=== PATIENT | female | born 1985 | race Caucasian/White ===

== ENCOUNTER → 2016-12-06 | Outpatient (CLI) | payer BC ==
[~2016-12-06] MED LIST: INSPMPHMLG; ONDA4TAB46 PO
--- NOTE | 2016-12-06 16:44 | DIAGNOSTIC IMAGING REPORT ---
THYROID ULTRASOUND CLINICAL HISTORY: Thyroid nodules. COMPARISON STUDY: None. TECHNIQUE: Sonography of the thyroid gland was performed. FINDINGS: Right thyroid lobe measures 5.9 x 2 x 1.8 cm and left lobe measures 5.4 x 1.9 x 2 cm. There are numerous thyroid nodules. The largest within the right lobe is a 2 x 1.3 x 1.3 cm lobulated hypodense midpole lesion which is predominantly solid with small cystic spaces. Note is made of a 1.2 x 1 x 0.8 cm hypoechoic nodule within the lower pole of the right lobe within the deep aspect of the gland. Several left lobe nodules are present. The largest is a solid nodule within the lower pole which measures 2 x 1.2 x 1.3 cm. IMPRESSION: Findings consistent with a multinodular thyroid gland. Ultrasound-guided fine needle aspiration of the 2 cm right mid pole nodule, the 1.2 cm right lower pole nodule and the 2 cm left lower pole nodule is recommended. Please schedule this procedure for Dr. Mensah. Electronically signed by: Alex Mensah M.D. 12/06/2016 4:42 PM Dictated Date/Time: 12/06/2016 3:36 PM
== END | disposition home or self-care (01) ==
LOC: C.ULTR 13:53
PROVIDERS: ATTEND Internal Medicine Endocrinology, Diabetes & Metabolism
DX: E04.2 Nontoxic multinodular goiter (principal)

== ENCOUNTER → 2016-12-27 | Outpatient (CLI) | payer BC ==
[~2016-12-27] MED LIST changes: -ONDA4TAB46 PO
--- NOTE | 2016-12-27 10:23 | Discharge Instructions ---
Discharge Instructions Procedure Procedure Date: December 27, 2016. Reason for visit: *Dr. Mensah Must Do*,Thyroid Nodules. Discharge Discharge Date: December 27, 2016. Discharge Diagnosis: s/p thyroid nodule FNA Instructions Activity Recommendations: No limitations Return to School/Work: no limitations Recommended Home Diet: No Limitations Provider Instructions: ACTIVITY RECOMMENDATIONS: * Rest today. * Resume regular activity in one day. MEDICATIONS: * May take Tylenol or Ibuprofen as needed for pain. DIET: * Resume previous diet. SPECIAL CARE INSTRUCTIONS: Call your doctor if: * Temperature above 101 degrees F. * Pain not relieved by pain medicine ordered. * Increased drainage or redness from incision. * Notify your doctor with any questions or concerns. Call your doctor or go to the nearest Emergency Department if you experience: * Increased chest pain or shortness of breath. FOLLOW UP VISIT: Follow-up with Referring Physician as scheduled. Allergies Coded Allergies: Latex1 -Allergic Contact Dermititis (Verified Allergy, Unknown, RASH, 10/08) Gera Foreman Recommendations: Call your doctor if: * Temperature above 101 degrees * Pain not relieved by pain medicine ordered * There is increased drainage or redness from any incision * You have any unanswered questions or concerns. Your Doctors Instructions noted above were prepared by provider Alex Mensah. Patient Signature Section: Patient Instructions Signature Page Halima Angeles Patient (or Guardian) Signature/Date: I have read and understand the instructions given to me by my caregivers. Caregiver/RN/Doctor Signature/Date: The above-named patient and/or guardian has received patient instructions on this date. + Original Patient Signature Page (only) stays with chart. Please make copy for patient.
--- NOTE | 2016-12-27 11:05 | DIAGNOSTIC IMAGING REPORT ---
ULTRASOUND GUIDED FINE NEEDLE ASPIRATION OF RIGHT AND LEFT LOBE THYROID NODULES CLINICAL HISTORY: Thyroid nodules. COMPARISON STUDY: Thyroid ultrasound December 06, 2016. PROCEDURE: Sonography of the thyroid gland again demonstrated the 2 cm right mid pole nodule and the 2 cm left lower pole nodule. The third nodule mentioned on prior ultrasound of December 06, 2016 was shown to be nearly entirely cystic on real-time imaging and therefore this nodule was not biopsied. The largest nodule within each lobe were targeted for biopsy. The procedure, risks and benefits were discussed with the patient. The patient agreed to the procedure and informed written consent was obtained. The procedure was performed by Dr. Mensah following a timeout. Skin of the neck was prepped and sterile fashion and local anesthesia was achieved with 1% lidocaine. Under direct ultrasound guidance, 2 25-gauge fine needle aspirations of the 2 cm right mid pole nodule and the 2 cm left lower pole nodule were performed. The samples were deemed preliminarily adequate by pathology. The patient tolerated the procedure well and no immediate complications were evident. IMPRESSION: 1. Ultrasound guided fine needle aspiration of the 2 cm right mid pole nodule and the 2 cm left lower pole nodule. 2. The third nodule mentioned on previous ultrasound of December 06, 2016 was not biopsied as it was nearly entirely cystic on real-time imaging. Electronically signed by: Alex Mensah M.D. 12/27/2016 11:03 AM Dictated Date/Time: 12/27/2016 11:01 AM
== END | disposition home or self-care (01) ==
LOC: C.ULTR 09:21
PROVIDERS: ATTEND Internal Medicine Endocrinology, Diabetes & Metabolism
DX: E04.1 Nontoxic single thyroid nodule (principal)

== ENCOUNTER → 2017-01-10 | Outpatient (CLI) | payer BC ==
[2017-01-10 17:18] LABS: HEMATOCRIT 46.2 % (37-47)
[2017-01-10 17:43] LABS: ALT/SGPT 21 U/L (12-78); AST/SGOT 14 U/L (15-37); BLOOD UREA NITROGEN 17 mg/dl (7-18); CALCIUM 8.9 mg/dl (8.5-10.1); CARBON DIOXIDE 29 mmol/L (21-32); CHLORIDE 105 mmol/L (98-107); CREATININE 0.81 mg/dl (0.60-1.20); GLUCOSE 177 mg/dl (70-99); POTASSIUM 4.1 mmol/L (3.5-5.1); SODIUM 140 mmol/L (136-145)
[2017-01-10 17:53] LABS: ALKALINE PHOSPHATASE 91 U/L (45-117); THYROID STIMULATING HORMONE 0.378 uIu/ml (0.300-4.500)
[2017-01-10 17:55] LABS: RATIO 6.4 mcg/mg (0-30.0)
[2017-01-11 07:24] LABS: ESTIMATED AVERAGE GLUCOSE 163 mg/dl; HA1C FLAG Normal (Normal)
== END | disposition home or self-care (01) ==
LOC: C.LAB1850 15:15
PROVIDERS: ATTEND Internal Medicine Endocrinology, Diabetes & Metabolism
DX: E10.9 Type 1 diabetes mellitus without complications (principal)

== ENCOUNTER → 2017-07-06 | Outpatient (CLI) | payer BC ==
[2017-07-06 12:53] LABS: ESTIMATED AVERAGE GLUCOSE 169 mg/dl; HA1C FLAG Normal (Normal)
[2017-07-06 13:09] LABS: CHOLESTEROL/HDL RATIO 2.5; THYROID STIMULATING HORMONE 0.285 uIu/ml (0.300-4.500)
[2017-07-10 15:28] LABS: MICROSOMAL AB <1 IU/ML (<9); TSI <89 % baseline (<140)
== END | disposition home or self-care (01) ==
LOC: C.LAB 09:53
PROVIDERS: ATTEND Internal Medicine Endocrinology, Diabetes & Metabolism
DX: E10.9 Type 1 diabetes mellitus without complications (principal); E27.0 Other adrenocortical overactivity; E04.1 Nontoxic single thyroid nodule

== ENCOUNTER 2017-09-18 07:39 | Emergency (ER) | payer BC, OTHER ==
[~2017-09-18] VITALS: Ht 160 cm; Wt 81.7 kg
[2017-09-18 07:50] VITALS: TEMP 36.9; Ht 160 cm; Wt 81.7 kg
[2017-09-18] MEDS ORDERED: ONDANSETRON INJ 2 MG/ML 2 ML VIAL IV STA (08:11)
[2017-09-18] MEDS ORDERED: SODIUM CHLORIDE 0.9% 1000ML 1,000 ML IV STA ×2 (08:11→10:29)
[2017-09-18] MEDS ORDERED: METF750T PO (08:19)
[2017-09-18 08:58] LABS: BASO % 0.1 %; BASO ABS # 0.01 K/uL (0-0.2); HEMOGLOBIN 15.7 g/dL (12.0-16.0); IG# 0.04 K/uL (0.00-0.02); LYMPH ABS # 0.44 K/uL (1.2-3.4); MEAN CELL VOLUME 90.2 fL (80-100); MEAN CORPUSCULAR HEMOGLOBIN 31.5 pg (25-34); MEAN CORPUSCULAR HGB CONC 34.9 g/dl (32-36); MEAN PLATELET VOLUME 10.1 fL (7.4-10.4); MONO % 1.2 %; MONO ABS # 0.18 K/uL (0.11-0.59); NEUT % 95.4 %; NEUT ABS # 13.84 K/uL (1.4-6.5); PLATELET COUNT 182 K/uL (130-400); RED CELL DISTRIBUTION WIDTH CV 12.5 % (11.5-14.5); RED CELL DISTRIBUTION WIDTH SD 40.9 fL (36.4-46.3); WHITE BLOOD COUNT 14.51 K/uL (4.8-10.8)
[2017-09-18 09:15] LABS: ALBUMIN 4.2 gm/dl (3.4-5.0); CALCIUM 9.6 mg/dl (8.5-10.1); CREATININE 0.93 mg/dl (0.60-1.20)
[2017-09-18 09:18] LABS: TOTAL PROTEIN 8.3 gm/dl (6.4-8.2)
[2017-09-18 11:02] LABS: INFLUENZA B ANTIGEN Neg for Influ B (NEG)
[2017-09-18] MEDS ORDERED: PROM25TA9 PO (11:21)
[2017-09-18 11:58] VITALS: BP 103/63; PULSE 110; O2SAT 99
--- NOTE | 2017-09-23 14:27 | EMERGENCY ROOM VISIT NOTE ---
History First contact with patient: 08:03 Chief Complaint: VOMITING Stated Complaint: THROWING UP, BLOOD SUGAR UP, FEVER Nursing Triage Summary: vomiting since last evening. History of Present Illness The patient is a 32 year old white female who presents to the Emergency Room with complaints of nausea and vomiting that developed around 9 PM last evening. She states she has thrown up numerous times, almost every hour. No diarrhea. She is a diabetic and is concerned that her sugars may climb. She is worried about DKA. No known ill contacts. She denies eating anything unusual or undercooked. No fevers, chills, chest pain, cough, shortness of breath, or severe abdominal pain. She has had some sweats. No treatment yet. She was not able to retain any fluids this morning. A female friend accompanies her today. Review of Systems REVIEW OF SYSTEM: HEENT: No dizziness, visual problems, hearing loss, or tinnitus. There is no difficulty swallowing and no oral lesions are present. PULMONARY: No cough, shortness of breath, sputum production or hemoptysis. CARDIOVASCULAR: No chest pain, palpitations, shortness of breath or peripheral edema. GASTROINTESTINAL: No diarrhea, constipation, or abdominal pain. GENITOURINARY: No dysuria, frequency, urgency or nocturia. NEUROLOGIC: No weakness, muscle tenderness, epilepsy or history of neurological problems. MUSCULOSKELETAL: No history of joint tenderness/swelling. No history of arthritis or arthralgias. SKIN: No rashes or lesions. PSYCHIATRIC: No history of depression or mental illness. ENDOCRINE: No history of thyroid disorders, or abnormal hair growth. Past Medical/Surgical History Medical Problems: (1) Diab Aleksandra Wo Comp Type Ii Or Nos/Not Uncontrolled (2) Diab Aleksandra Wo Comp Type Ii Or Nos/Not Uncontrolled Family History Diabetes mellitus Hypertension Social History Smoking Status: Never Smoker Smokeless Tobacco Use: No Alcohol Use: none Drug Use: none Marital Status: Housing Status: lives with significant other Occupation Status: employed Current/Historical Medications Scheduled Insulin Human Lispro (Insulin Humalog Pump ), 1 EA N/A UD Metformin Hcl (Glucophage Er), 750 MG PO DAILY Scheduled PRN Promethazine Hcl (Phenergan), 25 MG PO Q6H PRN for Nausea Physical Exam Vital Signs Date Time Temp Pulse Resp B/P (MAP) Pulse Ox O2 Delivery O2 Flow Rate FiO2 09/18/17 11:58 110 18 103/63 99 1/21/18 09:32 88 18 113/63 99 Room Air 09/18/17 07:50 36.9 104 20 105/70 98 Room Air Physical Exam Gen.: Well-developed, well-nourished, young white female, in no acute distress. Laying on a bed. Alert and oriented. Skin:Warm and dry with good turgor. No rashes or lesions. No ecchymosis or erythema. The patient is not diaphoretic. No abrasions. HEENT: Normocephalic atraumatic. Eyes PERRLA, EOMI. No conjunctiva or scleral injection. Ears TMs intact bilaterally with good light reflexes. No erythema or bulging. No hemotympanum. Canals are patent. Nares patent bilaterally without turbinate enlargement. No significant drainage. No epistaxis. Oropharynx without erythema or exudate. Uvula midline, oral mucosa moist. No lesions present. Heart: Heart RRR. No MGR. Peripheral pulses are 2+. Lungs: Lungs are clear to auscultation. No crackles rhonchi or wheezing. Good air movement. The patient is able to take a deep breath. Abdomen: Abdomen was inspected, auscultated, and palpated. Mildly obese. Bowel sounds present x 4. Soft, nontender to palpation. No hepato- splenomegaly. No masses noted. No rebound. No pain over McBurney's point. No CVA tenderness. Musculoskeletal: Gross motor function of the upper and lower extremities is intact and unremarkable. Neurologic: Gross sensation is intact across the upper and lower extremities by soft touch. Medical Decision & Procedures Laboratory Results 09/18/17 08:48 Red Blood Count 4.99, Mean Corpuscular Volume 90.2, Mean Corpuscular Hemoglobin 31.5, Mean Corpuscular Hemoglobin Concent 34.9, Mean Platelet Volume 10.1, Neutrophils (%) (Auto) 95.4, Lymphocytes (%) (Auto) 3.0, Monocytes (%) (Auto) 1.2, Eosinophils (%) (Auto) 0.0, Basophils (%) (Auto) 0.1, Neutrophils # (Auto) 13.84, Lymphocytes # (Auto) 0.44, Monocytes # (Auto) 0.18, Eosinophils # (Auto) 0.00, Basophils # (Auto) 0.01 09/18/17 08:48 Test 09/18/17 08:45 09/18/17 08:48 09/18/17 10:31 Urine Color DK YELLOW Urine Appearance CLEAR (CLEAR) Urine pH >= 9.0 (4.5-7.5) Urine Specific [place] 1.028 (1.000-1.030) Urine Protein NEG (NEG) Urine Glucose (UA) TRACE (NEG) Urine Ketones 1+ (NEG) Urine Occult Blood NEG (NEG) Urine Nitrite NEG (NEG) Urine Bilirubin NEG (NEG) Urine Urobilinogen NEG (NEG) Urine Leukocyte Esterase TRACE (NEG) Urine WBC (Auto) 1-5 /hpf (0-5) Urine RBC (Auto) 0-4 /hpf (0-4) Urine Hyaline Casts (Auto) 1-5 /lpf (0-5) Urine Epithelial Cells (Auto) >30 /lpf (0-5) Urine Bacteria (Auto) 1+ (NEG) Urine Mucus PRESENT (NONE PRSENT) White Blood Count 14.51 K/uL (4.8-10.8) Red Blood Count 4.99 M/uL (4.2-5.4) Hemoglobin 15.7 g/dL (12.0-16.0) Hematocrit 45.0 % (37-47) Mean Corpuscular Volume 90.2 fL (80-100) Mean Corpuscular Hemoglobin 31.5 pg (25-34) Mean Corpuscular Hemoglobin Concent 34.9 g/dl (32-36) Platelet Count 182 K/uL (130-400) Mean Platelet Volume 10.1 fL (7.4-10.4) Neutrophils (%) (Auto) 95.4 % Lymphocytes (%) (Auto) 3.0 % Monocytes (%) (Auto) 1.2 % Eosinophils (%) (Auto) 0.0 % Basophils (%) (Auto) 0.1 % Neutrophils # (Auto) 13.84 K/uL (1.4-6.5) Lymphocytes # (Auto) 0.44 K/uL (1.2-3.4) Monocytes # (Auto) 0.18 K/uL (0.11-0.59) Eosinophils # (Auto) 0.00 K/uL (0-0.5) Basophils # (Auto) 0.01 K/uL (0-0.2) RDW Standard Deviation 40.9 fL (36.4-46.3) RDW Coefficient of Variation 12.5 % (11.5-14.5) Immature Granulocyte % (Auto) 0.3 % Immature Granulocyte # (Auto) 0.04 K/uL (0.00-0.02) Anion Gap 8.0 mmol/L (3-11) Est Creatinine Clear Calc Drug Dose 86.3 ml/min Estimated GFR () 92.9 Estimated GFR (Non- 80.2 BUN/Creatinine Ratio 27.1 (10-20) Calcium Level 9.6 mg/dl (8.5-10.1) Total Bilirubin 0.6 mg/dl (0.2-1) Aspartate Amino Transf (AST/SGOT) 17 U/L (15-37) Alanine Aminotransferase (ALT/SGPT) 21 U/L (12-78) Alkaline Phosphatase 86 U/L (45-117) Total Protein 8.3 gm/dl (6.4-8.2) Albumin 4.2 gm/dl (3.4-5.0) Globulin 4.1 gm/dl (2.5-4.0) Albumin/Globulin Ratio 1.0 (0.9-2) Influenza Type A Antigen Neg for Influ A (NEG) Influenza Type B Antigen Neg for Influ B (NEG) CBC, chem panel, and influenza swabs were obtained. Sugar elevated at 204. White count mildly elevated at 14.5. UA obtained today shows 1+ ketones. Otherwise unremarkable. Medications Administered Medications (Trade) Dose Ordered Sig/Liang Route Start Time Stop Time Status Last Admin Dose Admin Sodium Chloride 1,000 ml @ 999 mls/hr Q1H1M STAT IV 09/18/17 08:11 09/18/17 09:11 DC 09/18/17 08:11 999 MLS/HR Ondansetron HCl (Zofran Inj) 4 mg NOW STAT IV 09/18/17 08:11 09/18/17 08:14 DC 09/18/17 09:02 4 MG Sodium Chloride 1,000 ml @ 999 mls/hr Q1H1M STAT IV 09/18/17 10:29 09/18/17 11:29 DC 09/18/17 10:29 999 MLS/HR Zofran 4 mg IV, 1 L normal sterile saline IV bolus 2 ED Course Patient was evaluated in B5. She was educated regarding today's findings. Conservative care measures were discussed. IV was established. Labs were obtained. She was given Zofran 4 mg IV with resolution of her nausea and vomiting. She was given 2 L normal sterile saline IV bolus. She remained stable. She had no further episodes of vomiting. Influenza swab was negative. Likelihood of GI virus was discussed. Follow-up with her PCP as needed. Maintain hydration. She may use Imodium if diarrhea develops. Prescription was given for Phenergan 25 mg to be used one tablet every 6 hours as needed for nausea and vomiting. Return to the ED if she should develop an uncontrollable fever or is unable to retain any food or fluids. She should check her blood sugar frequently. Nausea and vomiting instruction handout was provided. Medical Decision Possibility of gastroenteritis, gastritis, bacterial infection, diabetic ketoacidosis, bowel obstruction, UTI, sepsis, food poisoning, and influenza were considered, among others Medication Reconcilliation Current Medication List: was personally reviewed by me Blood Pressure Screening Patient's blood pressure: Normal blood pressure Impression Primary Impression: Nausea, vomiting, and diarrhea Departure Information Dispostion Home / Self-Care Condition FAIR Prescriptions Promethazine Hcl (Phenergan) 25 Mg Tab 25 MG PO Q6H Y for Nausea, #12 TAB Prov: Claude Wagner,P.A. 09/18/17 Forms INCREASE FLUID INTAKE, HOME CARE DOCUMENTATION FORM, MOTRIN USE, TYLENOL USE, IMPORTANT VISIT INFORMATION Patient Instructions Nausea Vomit Control, [employer] Additional Instructions Maintain hydration. Imodium can be used to reduce loose stools Phenergan 1 tablet every 6 hours as needed for nausea Monitoring your sugars frequently Follow-up with your PCP or return to the ED for any acute worsening of symptoms Rest as needed
== END 2017-09-18 12:00 | disposition home or self-care (01) ==
LOC: C.EDB 07:40
DX: R11.2 Nausea with vomiting, unspecified (principal); R19.7 Diarrhea, unspecified; E11.9 Type 2 diabetes mellitus without complications; Z79.4 Long term (current) use of insulin; Z83.3 Family history of diabetes mellitus; Z82.49 Family history of ischemic heart disease and other diseases of the circulatory system

== ENCOUNTER → 2017-10-20 | Outpatient (CLI) | payer OTHER ==
[~2017-10-20] MED LIST changes: +METF750T PO; +PROM25TA9 PO
[2017-10-20 16:35] LABS: BLOOD UREA NITROGEN 25 mg/dl (7-18); CALCIUM 9.5 mg/dl (8.5-10.1); CARBON DIOXIDE 26 mmol/L (21-32); CREATININE 0.91 mg/dl (0.60-1.20); GLUCOSE 131 mg/dl (70-99); POTASSIUM 3.9 mmol/L (3.5-5.1); SODIUM 137 mmol/L (136-145)
== END | disposition home or self-care (01) ==
LOC: C.LAB1850 15:10
PROVIDERS: ATTEND Family Medicine
DX: R06.02 Shortness of breath (principal)

== ENCOUNTER → 2017-10-21 | Outpatient (CLI) | payer OTHER ==
[~2017-10-21] MED LIST changes: +OPTIRAY 320 IV PRN
--- NOTE | 2017-10-21 09:54 | DIAGNOSTIC IMAGING REPORT ---
CT ANGIOGRAM OF THE CHEST CLINICAL HISTORY: Cough and dyspnea. COMPARISON STUDY: Chest x-ray dated 06/23/2016. TECHNIQUE: Following the IV administration of 91 cc of Optiray 320, CT angiogram of the chest was performed from the upper abdomen to the thoracic inlet utilizing the pulmonary embolus protocol. Images are reviewed in the axial, sagittal, and coronal planes. 3-D MIPS images are created and assessed. IV contrast was administered without complication. A dose lowering technique was utilized adhering to the principles of ALARA. CT DOSE: 260.61 mGy.cm FINDINGS: Thyroid: Imaged portions of the thyroid gland are normal in size and heterogeneous in attenuation. Low-attenuation nodules are suggested measure up to 1.4 cm. Thoracic aorta: The thoracic aorta is normal in caliber and demonstrates standard 3-vessel arch anatomy. No dissection is seen. Pulmonary vasculature: The pulmonary trunk is normal in caliber. There are no filling defects identified in main, lobar, or segmental pulmonary branches to suggest pulmonary embolus. Heart: The heart is normal in size and configuration, and without pericardial effusion. Lungs and pleural spaces: A small calcified granuloma is seen in the left lower lobe. Small patchy foci of tree-in-bud nodularity are present in the lower lobes and in the right middle lobe. There is no lobar consolidation or pleural effusion. The trachea and central airways are clear. Mediastinum: There is no mediastinal lymphadenopathy. Scarlett: Clear. Axillae: There is no axillary lymphadenopathy. Upper abdomen: Partially visualized upper abdominal viscera is within normal limits. Skeletal structures: No lytic or blastic bony lesions are seen. IMPRESSION: 1. There is no evidence of pulmonary embolus in the main, lobar, or segmental pulmonary arteries. 2. There are small patchy foci of tree-in-bud nodularity seen in the lower lobes and the right middle lobe. This suggests an infectious/inflammatory pneumonitis. 3. The thyroid gland is heterogeneous. Low-attenuation nodules are suspected measuring up to 1.4 cm. Follow-up with a nonemergent thyroid ultrasound is recommended for further assessment. Electronically signed by: Nolberto Berry M.D. 10/21/2017 9:52 AM Dictated Date/Time: 10/21/2017 9:47 AM
== END | disposition home or self-care (01) ==
LOC: C.CTS 09:16
PROVIDERS: ATTEND Family Medicine
DX: R06.02 Shortness of breath (principal)

== ENCOUNTER → 2018-01-16 | Outpatient (CLI) | payer OTHER ==
[~2018-01-16] MED LIST changes: -OPTIRAY 320 IV PRN
== END | disposition home or self-care (01) ==
LOC: C.PATHSPEC 17:29
PROVIDERS: ATTEND Plastic Surgery
DX: D22.5 Melanocytic nevi of trunk (principal)

== ENCOUNTER 2024-10-15 00:59 | Inpatient (IN) ==
--- OUTSIDE RECORDS SUMMARY | 2024-10-15 01:04 | External Medical Summary | Summary of Care ---
Author Name Unknown Organization [facility] Address [address] [place] [address] Phone [phone] Care Team Providers Care Applications Programmer Name Role Phone Angeline Bueno DO Primary Care Provider [phone] Reason for Visit * Reason Onset Date Comments Medication Administration 06/19/2024 Flu an d/or Pneumo Inj Encounter Details Date Type Department Care Team (Late st Contact Info) Description 06/19/2024 3:30 PM EDT Immunization Ancillary Department, [address] [address] [facility] [address] [place] [address] Need for prophylactic vaccination and inoculation against influenza* Allergies Active Allergy Reactions Criticality Noted Date Comments Latex Hives 04/18/2014 Valacyclovir 10/10/2014 Rash - questionable documented as of this encounter (statuses as of 06/19/2024) Medications Medication Sig Dispensed Refills Start Date End Date Status ONETOUCH LANCETS MISC check Finger stick 8 times daily 10 Box 1 08/12/2014 Active GLUCAGON EMERGENCY 1 MG IJ KIT As directed 2 Kit 5 09/14/2014 Active insulin aspart (INSULIN ASPART) 100 UNIT/ML injection 150 units every 3 days in Medtronic insulin pump as directed 6 Vial 3 12/25/2015 Active OZEMPIC, 0.25 OR 0.5 MG/DOSE, 2 MG/1.5ML SOPN Inject 0.25 mg under the skin once a week. 08/15/2019 Active levothyroxine (LEVOXYL) 150 MCG Tablet Take 1 Tablet by mouth in the morning. 7 08/15/2019 Active Dexcom G6 Bi Application Developer Device Start: 01/26/22 12:44:00 EDT, See Instructions, Disp# 1 kit, to monitor glucose, Pharmacy: [facility]/pharmacy #[id number] 01/26/2022 Active Dexcom G6 Sensor Start: 01/26/22 12:44:00 EDT, See Instructions, Disp# 3 each, Refills: 7, to monitor glucose, Pharmacy: [facility]/pharmacy #[id number] 01/26/2022 Active Dexcom G6 Transmitter Start: 01/26/22 12:44:00 EDT, See Instructions, Disp# 1 kit, to monitor glucose, Pharmacy: [facility]/pharmacy #[id number] 01/26/2022 Active OneTouch Ultra In Vitro Strip 09/14/2022 Active OneTouch Ultra 2 w/Device Kit 09/14/2022 Active AutoSoft XC Infusion Set 08/09/2022 Active T:slim X2 3mL Cartridge 08/09/2022 Active Precision Xtra Ketone In Vitro Strip (Ketone Blood Test)Indications:Ty pe 1 diabetes mellitus with hemoglobin A1c goal of less than 7.0% ([facility]) Use as needed to test for ketones. 50 Strip 05/03/2023 Active Triamcinolone Acetonide 0.1 % External Cream (Aristocort)Indicat ions:Allergic contact dermatitis, unspecified trigger Apply topically to affected area 2 times a day. To affected area. 60 g 1 01/02/2024 Active Additional Information Patient not taking.Reported on 05/15/2024 Ondansetron HCl 4 MG Oral Tablet (Zofran)Indications :Nausea Take 1 Tablet by mouth every 8 hours as needed for Nausea. 18 Tablet 1 05/15/2024 Active busPIRone HCl 5 MG Oral Tablet (Buspar)Indications :BARB (generalized anxiety disorder) Take 1 Tablet by mouth 3 times a day as needed for Anxiety. 90 Tablet 3 06/12/2024 Active documented as of this encounter (statuses as of 06/19/2024) Active Problems Problem Noted Date Diagnosed Date BARB (generalized anxiety disorder) 09/02/2020 Acquired hypothyroidism 09/02/2020 Type 1 diabetes mellitus wit h hemoglobin A1c goal of less than 7.0% 06/04/2016 Overview: Sees Dr Becky Mullen @[facility] PCOS (polycystic ovarian syndrome) 04/18/2014 documented as of this encounter (statuses as of 06/19/2024) Resolved Problems Problem Noted Date Diagnosed Date Resolved Date Recurrent major depressive d isorder, in full remission 09/02/2020 05/03/2023 Diabetes type 1, uncontrolled 12/25/2015 10/11/2017 Liver mass 11/25/2015 09/02/2020 Chronic diarrhea 11/25/2015 09/02/2020 Abdominal bloating 11/25/2015 Neoplasm of uncertain behavior of skin 11/11/2014 09/02/2020 Skin tag 11/11/2014 09/02/2020 Acne 11/11/2014 09/02/2020 History of basal cell cancer 11/11/2014 09/02/2020 Multiple pigmented nevi 11/11/201412/2020 Bronchitis, complicated 09/18/201412/2020 Type 1 diabetes mellitus wit h hemoglobin A1c goal of less than 8.5% 08/12/2014 12/25/2015 Overview: ICD-10 update of inactive term No diabetic retinopathy in both eyes 08/12/2014 09/02/2020 Type 1 diabetes mellitus wit h hemoglobin A1c goal of less than 7.0% 04/18/2014 09/14/2014 Overview: ICD-10 update of inactive term documented as of this encounter (statuses as of 06/19/2024) Immunizations Name Administration Dates Next Due COVID-19 mRNA, LNP-s, No Pre serve, 2-Dose Series (Pfizer) 11/22/2020,10/27/2020 Pneumococcal Polysaccharide PPV23 (Pneumovax) 02/13/2014 Seasonal Influenza, PF, 6 M & above, IM , (FluLaval or Fluzone) 05/20/2023,07/20/2022,09/02/2021,06/05 Seasonal Influenza, Trivalen t, (IIV3), PF, (Fluzone) 06/19/2024 TDAP (age 10 and older)(Boostrix) 02/13/2014 documented as of this encounter Social History Tobacco Use Types Packs/Day Years Used Date Smoking Tobacco: Never Smokeless Tobacco: Never Alcohol Use Standard Drinks/Week Comments Yes 0 (1 standard drink = 0.6 oz pur e alcohol) wine 2x/week PHQ-2 Answer Date Recorded PHQ Adult Total Score 0 05/15/2024 Hunger Vital Sign Answer Date Recorded Worried About Running Out of Food in the Last Ye ar Never true 09/12/2019 Ran Out of Food in the Last Year Never true 09/12/2019 Utilities Answer Date Recorded Do you have trouble paying y our heating, water, or electric bill? (Adult - for ages 18 years and over) Not on file 02/14/2024 Is your family able to pay t he heat, water, or electric bill? (Household - for ages 0-17 years) Not on file 02/14/2024 Does your family have access to good internet? (Household - for ages 0-17 years) Not on file 02/14/2024 Social Connections Answer Date Recorded How often do you feel lonely or isolated from those around you? (Adult - for ages 18 years and over) Not on file 02/14/2024 Sex and Gender Information Value Date Recorded Sex Assigned at Not on file Gender Identity Not on file Sexual Orientation Not on file Job Start Date Occupation Industry Not on file Not on file Not on file documented as of this encounter Progress Notes * Mary Grace Mireles LPN - 06/19/2024 3:34 PM EDT Immunization Administration Documentation Time Out Procedure Performed: Yes Patient Identified (Ask Name/Date of ): Yes Does the patient have a fever greater than 101 degrees today? No Patient allergic to latex? No VFC Stock: No Immunization(s) verified: Yes, Immunization Name: Flu, VIS Sheet(s) given: Yes Verified Side and Site: Yes Verified Shot(s) with Parent(s)/Patient: Yes PRE - ADMINISTRATION DOCUMENTATION Are you experiencing any cold symptoms or fever? No Have you had Guillain-Orlando Syndrome (an illness that causes paralysis) within the last 6 weeks? No Have you had the flu shot in the past? YES Have you ever had a reaction to the flu shot? Princess Mireles LPN, 06/19/2024 3:34 PM documented in this encounter Plan of Treatment Upcoming Encounters Date Type Department Care Team (Late st Contact Info) Description 09/21/2024 9:45 AM EST Imaging Radiology [address], [address] [place] [address] Scheduled Procedures Name Priority Associated Diagnoses Date/Ti me COLONOSCOPY FLEXIBLE PROXIMAL DIAGNOSTIC Chronic diarrhea ESOPHAGOGASTRODUODENOSCOPY ( EGD), FLEXIBLE, TRANSORAL, DIAGNOSTIC Chronic diarrhea Health Maintenance Due Date Last Done Comments Hepatitis B Vaccine (1 of 3 - 19+ 3-dose series) 2002 Pneumococcal Vaccine: Pediatrics (0 to 5 Years) and At-Risk Patients (6 to 64 Years) (2 of 2 - PCV) 02/13/2015 02/13/2014 Albumin/Creatinine Ratio 06/24/2016 06/24/2015, 11/28 Lipid Panel 04/30/2021 04/30/2016, 11/25/2014 GFR 08/25/2021 08/25/2020, 07/30, 10/20/2017, Additional history exists Diabetic Eye Exam 08/04/2022 08/04/2021, , 11/04/2018, Additional history exists DTap/Tdap Vaccines (2 - Td or Tdap) 02/14/2024 02/13/2014 COVID-19 Vaccine ( season) 2024 06/29/2021, 11/22/2020, 10/27/2020 Mammogram 09/08/2024 09/08/2023 HbA1c 10/03/2024 04/02/2024, 09/09/2015, 11/04/2015, Additional history exists Diabetic Foot Exam 12/20/2024 12/21/2023, 1 , 07/30/2015, Additional history exists TSH 04/02/2025 04/02/2024, 05/30, 11/25/2014 Depression Screening 05/15/2025 05/15/2024 Hepatitis C Screening 05/15/2025 Postpo precious from 2001 (Patient Declined After Education) HIV Screening 05/22/2025 Postponed from 1998 (Patient Declined After Education) Pap Smear 10/12/2026 10/12/2023, 01/2018, 04/26/2014, Additional history exists Cervical Cancer Screening 10/12/2028 HPV/Co-Test 10/12/2028 10/12/2023 Influenza Vaccine (FLU shot) Completed 06/19/2024, 05/20/2023, 07/20/2022, Additional history exists HPV (Gardasil) Vaccine Aged Out No lo nger eligible based on patient's age to complete this topic MENINGOCOCCAL (MENACTRA/MENVEO) Aged Out No longer eligible based on patient's age to complete this topic documented as of this encounter Medical Devices Not on filedocumented as of this encounter Visit Diagnoses Diagnosis Need for prophylactic vaccination and inoculation against influenza- Primary documented in this encounter Care Teams Applications Programmer Relationship Specialty Start Date End Date Angeline Bueno DO [address] [place] [address] PCP - General Family Medicine 08/12/14 documented as of this encounter
--- OUTSIDE RECORDS SUMMARY | 2024-10-15 01:04 | External Medical Summary | Summary of Care ---
Author Name Unknown Organization [facility] Address [address] [place] [address] Phone [phone] Care Team Providers Care Pneumatic Tester Mechanic Name Role Phone DecemberGordo MD Primary Care Provider [phone] Encounter Details Date Type Department Care Team (Late st Contact Info) Description 08/28/2024 Orders Only [facility] [address] [place] [address] DecemberGordo MD [address] [facility] [address] [place], [place] [id number] Allergies Active Allergy Reactions Criticality Noted Date Comments Latex Hives 04/18/2014 Valacyclovir 10/10/2014 Rash - questionable documented as of this encounter (statuses as of 08/28/2024) Medications ONETOUCH LANCETS MISC check Finger stick 8 times daily 10 Box 1 4 Active GLUCAGON EMERGENCY 1 MG IJ KIT As directed 2 Kit 5 5 Active insulin aspart (INSULIN ASPART) 100 UNIT/ML injection 150 units every 3 days in Medtronic insulin pump as directed 6 Vial 3 6 Active OZEMPIC, 0.25 OR 0.5 MG/DOSE, 2 MG/1.5ML SOPN Inject 0.25 mg under the skin once a week. 9 Active levothyroxine (LEVOXYL) 150 MCG Tablet Take 1 Tablet by mouth in the morning. 7 9 Active Dexcom G6 Digital Publishing Specialist Device Start: 01/26/22 12:44:00 EDT, See Instructions, Disp# 1 kit, to monitor glucose, Pharmacy: [facility]/pharmacy #[id number] 2 Active Dexcom G6 Sensor Start: 01/26/22 12:44:00 EDT, See Instructions, Disp# 3 each, Refills: 7, to monitor glucose, Pharmacy: [facility]/pharmacy #[id number] 2 Active Dexcom G6 Transmitter Start: 01/26/22 12:44:00 EDT, See Instructions, Disp# 1 kit, to monitor glucose, Pharmacy: [facility]/pharmacy #[id number] 2 Active OneTouch Ultra In Vitro Strip 3 Active OneTouch Ultra 2 w/Device Kit 3 Active AutoSoft XC Infusion Set 2 Active T:slim X2 3mL Cartridge 2 Active Precision Xtra Ketone In Vitro Strip (Ketone Blood Test)Indications :Type 1 diabetes mellitus with hemoglobin A1c goal of less than 7.0% ([facility]) Use as needed to test for ketones. 50 Strip 3 Active Triamcinolone Acetonide 0.1 % External Cream (Aristocort)Staci cations:Allergic contact dermatitis, unspecified trigger Apply topically to affected area 2 times a day. To affected area. 60 g 1 4 Active Additional Information Patient not taking.Reported on 05/15/2024 Ondansetron HCl 4 MG Oral Tablet (Zofran)Indicati ons:Nausea Take 1 Tablet by mouth every 8 hours as needed for Nausea. 18 Tablet 1 4 Active busPIRone HCl 5 MG Oral Tablet (Buspar)Indicati ons:BARB (generalized anxiety disorder) Take 1 Tablet by mouth 3 times a day as needed for Anxiety. 90 Tablet 3 4 Active documented as of this encounter (statuses as of 08/28/2024) Active Problems Problem Noted Date Diagnosed Date BARB (generalized anxiety disorder) 09/02/2020 Acquired hypothyroidism 09/02/2020 Type 1 diabetes mellitus wit h hemoglobin A1c goal of less than 7.0% 06/04/2016 Overview (10/15/2021): Sees Dr Becky Mullen @[facility] PCOS (polycystic ovarian syndrome) 04/18/2014 documented as of this encounter (statuses as of 08/28/2024) Resolved Problems Problem Noted Date Diagnosed Date [...] goal of less than 8.5% 08/12/2014 12/25/2015 Overview (01/06/2016): ICD-10 update of inactive term No diabetic retinopathy in both eyes 08/12/2014 09/02/2020 Type 1 diabetes mellitus wit h hemoglobin A1c goal of less than 7.0% 04/18/2014 09/14/2014 Overview (12/29/2015): ICD-10 update of inactive term documented as of this encounter (statuses as of 08/28/2024) Immunizations Name Administration Dates Next Due COVID-19 [...] years and over) Not on file 02/14/2024 Comments No Sex and Gender Information Value Date Recorded Sex Assigned at Not on file Legal Sex Female 11:22 AM EDT Gender Identity Not on file Sexual Orientation Not on file documented as of this encounter Plan of Treatment Upcoming Encounters Date Type Department Care Team (Late st Contact Info) Description 09/21/2024 9:45 AM EST Imaging Radiology [address] [place] [address] Scheduled Procedures Name Priority Associated Diagnoses Date/Ti me COLONOSCOPY FLEXIBLE PROXIMAL DIAGNOSTIC Chronic diarrhea ESOPHAGOGASTRODUODENOSCOPY ( EGD), FLEXIBLE, TRANSORAL, DIAGNOSTIC Chronic diarrhea Health Maintenance Due Date Last Done Comments Hepatitis B Vaccine (1 of 3 - 19+ 3-dose series) 2002 Pneumococcal Vaccine: Pediatrics (0 to 5 Years) and At-Risk Patients (6 to 18 Years and 19+ Years) (2 of 2 - PCV) 02/13/2015 02/13/2014 Albumin/Creatinine Ratio 06/24/2016 06/24/2015, 11/28 Lipid Panel 04/30/2021 04/30/2016, 11/25/2014 GFR 08/25/2021 08/25/2020, 07/30, 10/20/2017, Additional history exists DTap/Tdap Vaccines (2 - Td or Tdap) 02/14/2024 02/13/2014 COVID-19 Vaccine ( season) 2024 06/29/2021, 11/22/2020, 10/27/2020 Mammogram 09/08/2024 09/08/2023 HbA1c 10/03/2024 04/02/2024, 09/2015, 11/04/2015, Additional history exists Diabetic Foot Exam 12/20/2024 12/21/2023, 1 , 07/30/2015, Additional history exists TSH 04/02/2025 04/02/2024, 05/30, 11/25/2014 Depression Screening 05/15/2025 05/15/2024 Hepatitis C Screening 05/15/2025 Postpo precious from 2001 (Patient Declined After Education) HIV Screening 05/22/2025 Postponed from 1998 (Patient Declined After Education) Diabetic Eye Exam 08/28/2025 08/27/2024, , 07/07/2020, Additional history exists Pap Smear 10/12/2026 10/12/2023, 01/2018, 04/26/2014, Additional [...] Not on filedocumented as of this encounter Procedures Procedure Name Priority Date/Time Associated Diagnosis Comments DIABETIC EYE EXAM Routine 08/27/2024 documented in this encounter Results * DIABETIC EYE EXAM (08/27/2024) 08/27/2024 us Thuan Delgado OD OTHER Final Res ult OUTSIDE LAB (SEE SCANNED REPORT) documented in this encounter Care Teams Pneumatic Tester Mechanic Relationship Specialty Start Date End Date December, Gordo Perkins MD PCP - General Family Medicine 06/20/24 documented as of this encounter
--- OUTSIDE RECORDS SUMMARY | 2024-10-15 01:04 | External Medical Summary | Summary of Care ---
Author Name Unknown Organization [facility] Address [address] [facility] [place] [address] Phone [phone] Care Team Providers Care Catering Barista Name Role Phone Angeline Bueno DO Primary Care Provider [phone] Reason for Visit * Reason Onset Date Comments Medication Refill 06/12/2024 Encounter Details Date Type Department Care Team (Late st Contact Info) Description 06/12/2024 Refill Family Practice [facility] [address] [place] [address] Angeline Bueno DO [address] [place] [address] BARB (generalized anxiety disorder) Allergies Active Allergy Reactions Criticality Noted Date Comments Latex Hives 04/18/2014 Valacyclovir 10/10/2014 Rash - questionable documented as of this encounter (statuses as of 06/12/2024) Medications Medication Sig Dispensed Refills Start Date [...] the morning. 7 08/15/2019 Active Dexcom G6 Overhead Cleaner Maintainer Device Start: 01/26/22 12:44:00 EDT, See Instructions, Disp# 1 kit, to monitor glucose, [id number] 01/26/2022 Active Dexcom G6 Sensor Start: 01/26/22 12:44:00 EDT, See Instructions, Disp# 3 each, Refills: 7, to monitor glucose, Pharmacy: [facility]/pharmacy #[id number] 01/26/2022 Active Dexcom G6 Transmitter Start: 01/26/22 12:44:00 EDT, See Instructions, Disp# 1 kit, to monitor glucose, Pharmacy: [facility]/pharmacy #[id number] 01/26/2022 Active OneTouch Ultra In Vitro Strip 09/14/2022 Active OneTouch Ultra 2 w/Device Kit 09/14/2022 Active AutoSoft XC Infusion Set 08/09/2022 Active T:slim X2 3mL Cartridge 08/09/2022 Active Precision Xtra Ketone In Vitro Strip (Ketone Blood Test)Indications: Type 1 diabetes mellitus with hemoglobin A1c goal of less than 7.0% ([facility]) Use as needed to test for ketones. 50 Strip 05/03/2023 Active Triamcinolone Acetonide 0.1 % External Cream (Aristocort)Indic ations:Allergic contact dermatitis, unspecified trigger Apply topically to affected area 2 times a day. To affected area. 60 g 1 01/02/2024 Active Additional Information Patient not taking.Reported on 05/15/2024 Ondansetron HCl 4 MG Oral Tablet (Zofran)Indicatio ns:Nausea Take 1 Tablet by mouth every 8 hours as needed for Nausea. 18 Tablet 1 05/15/2024 Active busPIRone HCl 5 MG Oral Tablet (Buspar)Indicatio ns:BARB (generalized anxiety disorder) Take 1 Tablet by mouth 3 times a day as needed for Anxiety. 90 Tablet 3 06/12/2024 Active busPIRone HCl 5 MG Oral Tablet (Buspar)Indicatio ns:BARB (generalized anxiety disorder) Take 1 Tablet by mouth 3 times a day as needed for Anxiety. 90 Tablet 1 05/15/2024 Discontinue d(Refill) documented as of this encounter (statuses as of 06/12/2024) Active Problems Problem Noted Date Diagnosed Date BARB (generalized anxiety disorder) 09/02/2020 Acquired hypothyroidism 09/02/2020 Type 1 diabetes mellitus wit h hemoglobin A1c goal of less than 7.0% 06/04/2016 Overview: Sees Dr Becky Mullen @[facility] PCOS (polycystic ovarian syndrome) 04/18/2014 documented as of this encounter (statuses as of 06/12/2024) Resolved Problems Problem Noted Date Diagnosed Date [...] as of this encounter (statuses as of 06/12/2024) Immunizations Name Administration Dates Next Due COVID-19 mRNA, LNP-s, No Pre serve, 2-Dose Series (Pfizer) 11/22/2020,10/27/2020 Pneumococcal Polysaccharide PPV23 (Pneumovax) 02/13/2014 Seasonal Influenza, PF, 6 M & above, IM , (FluLaval or Fluzone) 05/20/2023,07/20/2022,09/02/2021,06/05 TDAP (age 10 and older)(Boostrix) 02/13/2014 documented [...] on file documented as of this encounter Miscellaneous Notes * Telephone Encounter - Gordo Morales MD - 06/12/2024 11:53 AM EDTSigned Prescriptions: Disp Refills busPIRone HCl 5 MG Oral Tablet (Buspar) 90 Tab*3 Sig: Take 1 Tablet by mouth 3 times a day as needed for Anxiety.Authorizing Provider: GORDO MORALES * Telephone Encounter - Estuardo Raymundo OSA - 06/12/2024 11:48 AM EDT Did you pend patient's preferred pharmacy and medication before forwarding?yes Pharmacy: [id number] [address] [facility] Pending Prescriptions: Disp Refills busPIRone HCl 5 MG Oral Tablet (Buspar) 90 Tab*1 Sig: Take 1 Tablet by mouth 3 times a day as needed for Anxiety. Last Visit: 12/21/2023 (in office), 01/15/2022 (telemedicine) Next Visit: Visit date not found If no future appointments scheduled, and last appointment is greater than a year ago, please schedule patient for a follow-up appointment Last date the medication was ordered: 05/15/24 Is this request for a controlled substance?No Urine Drug Screen:No results found for this or any previous visit. Patient Phone Numbers Labs: Lab Results Component Value Date/Time CREAT 0.92 08/25/2020 12:00 AM CREAT 0.7 08/24/2018 03:27 PM POTASSIUM 3.9 08/25/2020 12:00 AM POTASSIUM 4.3 11/04/2015 11:40 AM TSH 1.20 04/02/2024 12:00 AM TSH 0.37 06/24/2015 04:42 PM LDL 67 04/30/2016 09:38 AM LDL NOT APPLICABLE 04/30/2016 09:38 AM ALT 9 (L) 11/04/2015 11:40 AM HGBA1C 7.3 (A) 04/02/2024 12:00 AM HGBA1C 8.3 (H) 04/30/2016 09:38 AM documented in this encounter Plan of Treatment Upcoming Encounters Date Type Department Care Team (Late st Contact Info) Description 09/21/2024 9:45 AM EST Imaging Radiology [facility] [address] [facility] [place] [address] [place] [address] Scheduled Procedures Name Priority Associated Diagnoses Date/Ti [...] Vaccine ( season) 2024 06/29/2021, 11/22/2020, 10/27/2020 Influenza Vaccine (FLU shot) (#1) 2024 05/20/2023, 07/20/2022, 09/02/2021, Additional history exists Mammogram 09/08/2024 09/08/2023 HbA1c 10/03/2024 04/02/2024, 09/2015, [...] Cervical Cancer Screening 10/12/2028 HPV/Co-Test 10/12/2028 10/12/2023 HPV (Gardasil) Vaccine Aged Out No lo nger eligible based on patient's age to complete this topic MENINGOCOCCAL (MENACTRA/MENVEO) Aged Out No longer eligible based on patient's age to complete this topic documented as of this encounter Medical Devices Not on filedocumented as of this encounter Visit Diagnoses Diagnosis BARB (generalized anxiety disorder) Generalized anxiety disorder documented in this encounter Care Teams Catering Barista Relationship Specialty Start Date End Date Angeline Bueno DO [address] [place] [address] PCP - General Family Medicine 08/12/14 documented as of this encounter
--- OUTSIDE RECORDS SUMMARY | 2024-10-15 01:04 | External Medical Summary | Summary of Care ---
Author Name Unknown Organization [facility] Address [address] [place] [address] Phone [phone] Care Team Providers Care General Repairer Name Role Phone Angeline Bueno DO Primary Care Provider [phone] Reason for Visit * Reason Comments Acute Patient is here toda y as she reports smelling burnt rubber. Patient first experienced about a month ago but it went away. Patient reports it has come back and it occurs "off and on" but mostly smells it at night. Patient reports no changes in her diet or lifestyle. Encounter Details Date Type Department Care Team (Late st Contact Info) Description 05/15/2024 2:00 PM EDT Office Visit [facility] [address] [place] [address] Gordo Isaac MD [address], [place] [id number] BARB (generalized anxiety disorder)*; Dysosmia; Nausea Allergies Active Allergy Reactions Criticality Noted Date Comments Latex Hives 04/18/2014 Valacyclovir 10/10/2014 Rash - questionable documented as of this encounter (statuses as of 05/15/2024) Medications Medication Sig Dispensed Refills Start Date [...] the morning. 7 08/15/2019 Active Dexcom G6 [employer] Labourer Device Start: 01/26/22 12:44:00 EDT, See Instructions, Disp# 1 kit, to monitor glucose, Pharmacy: [facility]/pharmacy #[id number] 01/26/2022 Active Dexcom G6 Sensor Start: 01/26/22 12:44:00 EDT, See Instructions, Disp# 3 each, Refills: 7, to monitor glucose, Pharmacy: [facility]/pharmacy #[id number] 01/26/2022 Active Dexcom G6 Transmitter Start: 01/26/22 12:44:00 EDT, See Instructions, Disp# 1 kit, to monitor glucose, Pharmacy: [facility]/pharmacy #[id number] 01/26/2022 Active OneTouch Ultra In Vitro Strip 09/14/2022 Active OneTouch Ultra 2 w/Device Kit 09/14/2022 Active AutoSoft XC Infusion Set 08/09/2022 Active T:slim X2 3mL Cartridge 08/09/2022 Active Precision Xtra Ketone In Vitro Strip (Ketone Blood Test)Indications: Type 1 diabetes mellitus with hemoglobin A1c goal of less than 7.0% ([facility]) Use as needed to test for ketones. 50 Strip 05/03/2023 Active Triamcinolone Acetonide 0.1 % External Cream (Aristocort)Indic ations:Allergic contact dermatitis, unspecified trigger Apply topically to affected area 2 times a day. To affected area. 60 g 1 01/02/2024 Active Additional Information Patient not taking.Reported on 05/15/2024 busPIRone HCl 5 MG Oral Tablet (Buspar)Indicatio ns:BARB (generalized anxiety disorder) Take 1 Tablet by mouth 3 times a day as needed for Anxiety. 90 Tablet 1 05/15/2024 Active Ondansetron HCl 4 MG Oral Tablet (Zofran)Indicatio ns:Nausea Take 1 Tablet by mouth every 8 hours as needed for Nausea. 18 Tablet 1 05/15/2024 Active busPIRone HCl 5 MG Oral Tablet (Buspar)Indicatio ns:BARB (generalized anxiety disorder) Take by mouth 1 Tablet as needed in the morning AND 1 Tablet as needed at noon AND 1 Tablet as needed in the evening for Anxiety. 90 Tablet 1 11/23/2021 4 Discontinue d(Refill) Ondansetron HCl 4 MG Oral Tablet (Zofran)Indicatio ns:Nausea Take 1 Tablet by mouth every 8 hours as needed for Nausea. 18 Tablet 1 06/24/2023 4 Discontinue d(Refill) documented as of this encounter (statuses as of 05/15/2024) Active Problems Problem Noted Date Diagnosed Date BARB (generalized anxiety disorder) 09/02/2020 Acquired hypothyroidism 09/02/2020 Type 1 diabetes mellitus wit h hemoglobin A1c goal of less than 7.0% 06/04/2016 Overview: Sees Dr Becky Mullen @[facility] PCOS (polycystic ovarian syndrome) 04/18/2014 documented as of this encounter (statuses as of 05/15/2024) Resolved Problems Problem Noted Date Diagnosed Date [...] as of this encounter (statuses as of 05/15/2024) Immunizations Name Administration Dates Next Due COVID-19 [...] alcohol) wine 2x/week PHQ-2 Answer Date Recorded PHQ-2 Score 0 09/12/2019 Hunger Vital Sign Answer Date Recorded Worried [...] on file documented as of this encounter Last Filed Vital Signs Vital Sign Reading Time Taken Comments Blood Pressure 108/60 05/15/2024 2:04 PM EDT Pulse 62 05/15/2024 2:04 PM EDT Temperature 36.7 C (98 F) 05/15/2024 2:04 PM EDT Respiratory Rate 16 05/15/2024 2:04 PM EDT Oxygen Saturation 97% 05/15/2024 2:04 PM EDT Inhaled Oxygen Concentration - - Weight 89.9 kg (198 lb 3.2 oz) 05/15/2024 2:04 P M EDT Height 160 cm (5' 3") 05/15/2024 2:04 PM EDT Body Mass Index 35.11 05/15/2024 2:04 PM EDT documented in this encounter Progress Notes * Gordo Isaac MD - 05/15/2024 2:06 PM EDT Images from the original note were not included. Assessment and Plan 1. Dysosmia Unclear etiology of patient's dysautonomia. Discussed that most likely cause is sinusitis or chronic rhinitis. We will treat this with oral antihistamine and saline nasal spray over the next month. If not seeing improvement consider ENT referral. 2. BARB (generalized anxiety disorder) P.r.n. use of BuSpar. - busPIRone HCl 5 MG Oral Tablet (Buspar); Take 1 Tablet by mouth 3 times a day as needed for Anxiety. Dispense: 90 Tablet; Refill: 1 3. Nausea - Ondansetron HCl 4 MG Oral Tablet (Zofran); Take 1 Tablet by mouth every 8 hours as needed for Nausea. Dispense: 18 Tablet; Refill: 1 Wrap-Up Follow up as needed. History of Present Illness The patient is a 39 year old female with past medical history of type 1 diabetes, PCOS, acquired hypothyroidism, BARB who presents for acute. 39-year-old female presents with intermittent dysautonomia over the last month. She reports smelling a rubbery smell at night which is not smelled by her or children. Smell seems to resolve by the next morning. She denies any headache associated. No neurologic signs associated. She denies any significant illnesses over the last month. No changes to medications over the last month. No history of seizure disorder. Physical Exam Vitals: 05/15/24 1404 Temp: 36.7 C (98 F) Pulse: 62 Resp: 16 SpO2: 97% BP: 108/60 BMI: 35.12 Physical Exam Physical Exam Vitals reviewed. Constitutional: General: She is not in acute distress. HENT: Right Ear: Tympanic membrane normal. There is no impacted cerumen. Left Ear: Tympanic membrane normal. There is no impacted cerumen. Nose: Nose normal. No congestion or rhinorrhea. Mouth/Throat: Mouth: Mucous membranes are moist. Pharynx: No oropharyngeal exudate or posterior oropharyngeal erythema. Musculoskeletal: Cervical back: Neck supple. Lymphadenopathy: Cervical: No cervical adenopathy. Neurological: Mental Status: She is alert. This note has been completed in part utilizing [employer] Speech Voice Recognition Software. Due to technical limitations of the software, grammatical errors, random word insertions, prounoun errors, and incomplete sentences may occur. Any formal questions or concerns about the content, text, or information contained within the body of this dictation should be directly addressed to the provider for clarification. documented in this encounter Nursing Notes * Letty Church MED ASSIST - 05/15/2024 2:11 PM EDT The patient has been properly identified by confirmation of name and date of . Chief Complaint Patient presents with Acute Patient is here today as she reports smelling burnt rubber. Patient first experienced about a monthago but it went away. Patient reports it has come back and it occurs "off and on" but mostly smellsit at night. Patient reports no changes in her diet or lifestyle. documented in this encounter Plan of Treatment Upcoming Encounters Date Type Department Care Team (Late st Contact Info) Description 09/21/2024 9:45 AM EST Imaging Radiology [facility], [address] [address] Scheduled Procedures Name Priority Associated Diagnoses [...] 2024 05/20/2023, 07/20/2022, 09/02/2021, Additional history exists Diabetic Eye Exam 05/29/2024 08/04/2021, , 11/04/2018, Additional history exists Postponed from 08/04/2022 (Patient Declined After Education) Mammogram 09/08/2024 09/08/2023 HbA1c 10/03/2024 04/02/2024, 09/2015, [...] encounter Visit Diagnoses Diagnosis BARB (generalized anxiety disorder)- Primary Generalized anxiety disorder Dysosmia Disturbances of sensation of smell and taste Nausea Nausea alone documented in this encounter Care Teams General Repairer Relationship Specialty Start Date End Date Angeline Bueno DO [address] [facility] [place] [address] PCP - General Family Medicine 08/12/14 documented as of this encounter
--- NOTE | 2024-10-15 01:10 | Emergency Department Note ---
History of Present Illness General Chief complaint: GI Assessment Stated complaint: NECK PAIN, NAUSEA, VOMITING Time Seen by Provider: 10/15/24 01:03 History of Present Illness This 39-year-old female presents ER complaint of nausea, vomiting, diarrhea and abdominal pain the past 3 hours. Patient denies chest pain, dyspnea. She states she has been around other sick people. She is a type I diabetic. Blood sugar 180. Home Medications Medication Instructions Recorded Confirmed Type cholecalciferol (vitamin D3) 50 2,000 units PO DAILY 07/22/19 History mcg (2,000 unit) capsule glucagon (human recombinant) 1 mg See Rx Instructions .Route 07/22/19 History solution for injection (Glucagon .COMPLEX PRN Emergency Kit) insulin aspart U-100 100 unit/mL See Rx Instructions .Route .COMPLEX 07/22/19 History subcutaneous solution (Novolog U-100 Insulin aspart) metformin 750 mg tablet,extended 750 mg PO QDD 07/22/19 History release 24 hr semaglutide 0.25 mg or 0.5 mg (2 0.5 mg subcut WK 07/22/19 History mg/1.5 mL) subcutaneous pen injector (Ozempic) thyroid (pork) 120 mg tablet See Rx Instructions .Route .COMPLEX 07/22/19 History ([place] Thyroid) thyroid (pork) 15 mg tablet See Rx Instructions .Route .COMPLEX 07/22/19 History ([place] Thyroid) ondansetron 4 mg disintegrating 4 mg PO Q8H PRN nausea and 11/29/22 Rx tablet vomiting #6 tabs oxycodone 5 mg tablet 5 mg PO Q6H PRN pain #6 tabs 11/29/22 Rx Allergies Allergy/AdvReac Type Severity Reaction Status Date / Time latex Allergy Unknown RASH Verified 09/18/17 08:18 Past Med/Surg History Problem List (Updated 10/15/24 @ 05:27 by Melissa Whyte PA-C) Gastroenteritis due to norovirus (Acute) Nausea, vomiting, and diarrhea (Acute) Abdominal pain (Acute) Diffuse abdominal pain (Acute) Dysuria (Acute) Nausea, vomiting, and diarrhea (Acute) Rash (Acute) Medical History PCOS (polycystic ovarian syndrome) Type 1 diabetes Surgical History No pertinent past surgical history Social History Smoking Status: Never smoker Preferred Language: Jordanian Feels Safe at Home: Yes Review of Systems A total of 10 systems reviewed and were otherwise negative Physical Exam Vital Signs Vital Signs - 24 hr 10/15/24 01:03 10/15/24 01:05 10/15/24 01:07 Temperature 36.8 C Temperature Source Oral Pulse Rate 98 H 101 H Pulse Rate [Right Finger] Pulse Rhythm [Right Finger] Pulse Strength [Right Finger] Respiratory Rate 16 Respiratory Effort / Characteristics Respiratory Depth Respiratory Pattern Blood Pressure 129/72 Blood Pressure [Right Arm] Blood Pressure Mean 91 Blood Pressure Mean [Right Arm] Blood Pressure Position Semi-fowlers Blood Pressure Position [Right Arm] Pulse Oximetry 100 Oxygen Delivery Method Room Air Room Air Sepsis Recent Fever Within 48 Hours Yes Sepsis New/Unexplained Change in Mental Status N/A Sepsis Action Taken by Nursing No Action Required 10/15/24 02:48 10/15/24 04:00 10/15/24 05:16 Temperature Temperature Source Pulse Rate 87 Pulse Rate [Right Finger] 89 83 Pulse Rhythm [Right Finger] Regular Pulse Strength [Right Finger] Normal Respiratory Rate 17 18 Respiratory Effort / Characteristics Non-Labored Spontaneous Non-Labored Spontaneous Respiratory Depth Normal Normal Respiratory Pattern Regular Regular Blood Pressure Blood Pressure [Right Arm] 126/75 126/75 Blood Pressure Mean Blood Pressure Mean [Right Arm] 92 92 Blood Pressure Position Blood Pressure Position [Right Arm] Lying Lying Pulse Oximetry 97 97 Oxygen Delivery Method Room Air Room Air Sepsis Recent Fever Within 48 Hours Sepsis New/Unexplained Change in Mental Status Sepsis Action Taken by Nursing VITALS: Vitals are noted on the nurse's note and reviewed by myself. Vital signs stable. GENERAL: Pleasant female, in no acute distress, nondiaphoretic, well-developed well-nourished. SKIN: Capillary reflex less than 2 seconds. HEENT: Normocephalic. PERRLA. EOMI. Nares patent. Mucous membranes moist. Neck is supple without nuchal rigidity. HEART: Regular rate and rhythm LUNGS: Clear to auscultation bilaterally without wheezes, rales or rhonchi. No retractions or accessory muscle use. ABDOMEN: Positive bowel sounds x 4. Normal tympanic percussion. Soft, mild diffuse tenderness, without masses or organomegaly. Smith sign negative. No guarding or rebound tenderness. no CVA tenderness MUSCULOSKELETAL: No gross musculoskeletal defects. NEURO: Patient was alert and oriented to person place and time. No focal neurological deficits. Course Administered Medications Discontinued Medications Dicyclomine HCl (Dicyclomine Hcl 10 Mg/Ml 2 Ml Amp/Vial) 20 mg IM NOW ONE Stop: 10/15/24 01:07 Last Admin: 10/15/24 01:45 Dose: 20 mg Documented By: DEMETRIS Sodium Chloride (Nss) 1,000 mls @ 999 mls/hr IV .Q1H1M ONE Stop: 10/15/24 02:06 Last Infusion: 10/15/24 04:14 Dose: Infused Documented By: Admin: 10/15/24 01:14 Dose: 999 mls/hr Documented By: WANG Famotidine (Pepcid 20mg Iv Push) 20 mg in 5 mls @ 2.5 mls/min IV NOW STA Stop: 10/15/24 01:09 Last Admin: 10/15/24 01:44 Dose: 2.5 mls/min Documented By: DEMETRIS Magnesium Sulfate/Dextrose (Magnesium Sulfate / D5w) 1 gm in 100 mls @ 100 mls/hr IV Q1H DINORAH Stop: 10/15/24 04:11 Last Infusion: 10/15/24 04:59 Dose: Infused Documented By: Admin: 10/15/24 03:52 Dose: 100 mls/hr Documented By: Infusion: 10/15/24 03:33 Dose: Infused Documented By: Admin: 10/15/24 02:33 Dose: 100 mls/hr Documented By: DEMETRIS Sodium Chloride (Nss) 1,000 mls @ 999 mls/hr IV .Q1H1M ONE Stop: 10/15/24 03:12 Last Infusion: 10/15/24 04:59 Dose: Infused Documented By: Admin: 10/15/24 03:52 Dose: 999 mls/hr Documented By: DEMETRIS Ioversol (Optiray 320 100ml) 100 ml IV ONCE ONE Stop: 10/15/24 02:24 Last Admin: 10/15/24 04:31 Dose: Not Given Documented By: RAUL Ioversol (Optiray 320 100ml) 100 ml IV ONCE ONE Stop: 10/15/24 04:31 Last Admin: 10/15/24 04:30 Dose: 93 ml Documented By: SHANIKA Ondansetron HCl (Ondansetron Inj 2 Mg/Ml 2 Ml Vial) 4 mg IV NOW STA Stop: 10/15/24 01:07 Last Admin: 10/15/24 01:44 Dose: 4 mg Documented By: DEMETRIS Medical Decision Making Medical Records Attestation: I reviewed the patient's medical records. Home Medications Current Medication List: was personally reviewed by me Laboratory Data Attestation: I reviewed the patient's lab results. 10/15/24 01:08 10/15/24 01:08 Lab Results 10/15/24 10/15/24 Range/Units 01:08 03:56 WBC 15.65 H (4.8-10.8) K/ul RBC 4.94 (4.20-5.40) M/uL Hgb 15.2 (12.0-16.0) g/dl Hct 43.8 (37.0-47.0) % MCV 88.7 (80.0-100.0) fL MCH 30.8 (25.0-34.0) pg MCHC 34.7 (32.0-36.0) g/dL RDW Std Deviation 41.5 (36.4-46.3) fL RDW Coeff of Abdi 12.8 (11.5-14.5) % Plt Count 214 (130-400) K/uL MPV 9.7 (9.4-12.4) fL Immature Gran % (Auto) 0.3 % Neut % (Auto) 91.6 % Lymph % (Auto) 2.2 % Atlantic % (Auto) 5.6 % Eos % (Auto) 0.1 % Baso % (Auto) 0.2 % Neut # (Auto) 14.34 H (1.40-6.50) K/uL Lymph # (Auto) 0.34 L (1.20-3.40) K/uL Atlantic # (Auto) 0.88 H (0.11-0.59) K/uL Eos # (Auto) 0.02 (0.00-0.50) K/uL Baso # (Auto) 0.03 (0.00-0.20) K/uL Immature Gran # (Auto) 0.04 (0.01-0.20) K/uL Sodium 137 (136-145) mmol/L Potassium 4.2 (3.5-5.1) mmol/L Chloride 104 (98-107) mmol/L Carbon Dioxide 23 (21-32) mmol/L Anion Gap 10 (3-11) BUN 19 (6-23) mg/dl Creatinine 0.90 (0.6-1.2) mg/dl Est Cr Clr Drug Dosing 90.4 ml/min eGFR 82.37 BUN/Creatinine Ratio 21.1 H (10-20) Glucose 207 H (70-99(Fasting)) mg/dl Calcium 9.3 (8.6-10.3) mg/dl Magnesium 1.5 L (1.7-2.4) mg/dl Total Bilirubin 0.6 (0.2-1.0) mg/dl AST 17 (13-39) U/L ALT 13 (7-52) U/L Alkaline Phosphatase 76 (34-104) U/L Total Protein 7.6 (6.0-8.3) gm/dl Albumin 4.4 (3.4-5.0) gm/dl Globulin 3.2 (2.5-4.0) gm/dl Albumin/Globulin Ratio 1.4 (0.9-2) Lipase 10 L (11-82) U/L Stl C. cayetanensis PCR Not Detected (NotDetected) Stool Rotavirus A PCR Not Detected (NotDetected) Stl Adenov F 40/41 PCR Not Detected (NotDetected) Stool Astrovirus (PCR) Not Detected (NotDetected) Stool Campylobacter PCR Not Detected (NotDetected) Stl C. diff Tox B Gene Negative Cdiff Gene (Neg) Stool Cryptosporidium PCR Not Detected (NotDetected) Stl E.coli Shiga Tox PCR Not Detected (NotDetected) Stl Enterotoxigenic E PCR Not Detected (NotDetected) Stool EPEC (PCR) Not Detected (NotDetected) Stool EAEC (PCR) Not Detected (NotDetected) Stl E. histolytica PCR Not Detected (NotDetected) Stool Giardia Lamblia PCR Not Detected (NotDetected) Stool Salmonella PCR Not Detected (NotDetected) Stool Sapovirus (PCR) Not Detected (NotDetected) Stl P. shigelloides PCR Not Detected (NotDetected) Stl Shigella/EIEC PCR Not Detected (NotDetected) St Y.enterocolitica PCR Not Detected (NotDetected) Stool Vibrio (PCR) Not Detected (NotDetected) Stl Vibrio cholerae PCR Not Detected (NotDetected) Stl Norovirus GI/GII PCR DETECTED A* (NotDetected) Imaging Data Attestation: I personally reviewed and interpreted this imaging study as follows: Radiologist's Impression: Abdomen/Pelvis CT 10/15/24 01:07 EXAM: CT abd pelvis IV con only CLINICAL HISTORY: Vomiting/abd pain TECHNIQUE: Multiple contiguous axial images were obtained from the level of diaphragm to the pubis symphysis. This study was acquired after the IV administration of iodinated contrast material, given the patient's indications for the examination. If IV contrast material had not been administered, the likelihood of detecting abnormalities relevant to the patient's condition would have been substantially decreased. Coronal and sagittal reformatted images were generated and reviewed to improve anatomic localization and optimize lesion detection. CT scan was performed according to ALARA (as low as reasonably achievable). COMPARISON: 22 June 2022 FINDINGS: The visualized lung bases are clear. ABDOMEN/PELVIS: The liver is normal in size and attenuation. No focal liver lesions are seen. There is no intra or extrahepatic biliary ductal dilatation. Hepatic vasculature is patent. Gallbladder is well distended. Hyperdense focus seen in gall bladder lumen near neck- 2 mm size. No signs of acute cholecystitis. The spleen is unremarkable. The pancreas is unremarkable. Both adrenal glands are unremarkable. The kidneys are normal in size and attenuation. There is no hydronephrosis. No perinephric fat stranding is seen. No renal calculi or renal masses are identified. The ureters are normal in caliber and no ureteral calculi are seen. The bladder is normal in contour. No evidence of focal or diffuse bowel wall thickening or evidence of bowel obstruction is seen. No evidence of inflamed appendix. No adenopathy or fluid collections are seen. The aorta is normal in caliber. No aggressive appearing osseous lesions are identified. A sclerotic lesion is noted involving the right iliac bone, possible enostosis. IMPRESSION: 1. Hyperdense focus seen in gall bladder lumen near neck- 2 mm size. Advised ultrasound correlation to confirm cholelithiasis. New finding as compared to prior study. 2. A sclerotic lesion is noted involving the right iliac bone, possible enostosis. Stable. 3. No other significant abnormality detected. Electronically signed by Clem Mendoza 10-15-2024 03:27 AM MDM Narrative Prior records/ancillary studies reviewed. Triage Nursing notes reviewed. Additional history obtained from nursing The patient's history was concerning for nausea, vomiting, diarrhea, and abdominal pain. Differential diagnosis: Etiologies such as gastroenteritis, food borne illness, infections, appendicitis, diverticulitis, inflammatory bowel disease, obstruction, GI bleed, biliary pathology, as well as others were entertained. Physical examination findings: As above. Abdominal examination revealed diffuse tenderness. Vital signs reviewed and revealed stable. ER treatment provided: IV hydration 1 L NSS. Zofran, Bentyl, Pepcid, magnesium On reassessment the patient felt better. Patient was tolerating p.o. intake. Diagnostics interpretation by me: The labs Independently Interpreted by myself revealed leukocytosis, low magnesium Imaging studies: Imaging was reviewed and read by radiology Consultation: A consultation was placed with the hospitalist. The case was discussed and diagnostics were reviewed. The patient was evaluated in the ER for further treatment. This appears to be consistent with vomiting and diarrhea from the norovirus. Patient states she is too weak to go home and is requesting admission. Medicine is consulted and will evaluate the patient for possible admission. By the evaluation outlined above emergent etiologies such as appendicitis, diverticulitis, obstruction, cardiac sources, mesenteric ischemia, aortic pathology, inflammatory bowel disease, renal colic, PUD, biliary pathology, UTI, as well as others were deemed relatively unlikely. The pt informed about the findings as listed above. All questions were answered and pleased with the treatment. The chart was completed utilizing [employer] Speech voice recognition software. Grammatical errors, random word insertions, pronoun errors, and incomplete sentences are an occassional consequence of this system due to software limitations, ambient noise, and hardware issues. Any formal questions or concerns about the content, text, or information contained within the body of this dictation should be directly addressed to the physician department assistant for clarification. Impression & Plan Gastroenteritis due to norovirus, Nausea, vomiting, and diarrhea Discharge Plan Visit Data Chief Complaint: GI Assessment Stated Complaint: NECK PAIN, NAUSEA, VOMITING ED Provider: Shirley Archer ED Midlevel Provider: Melissa Whyte Discharge Problem: Gastroenteritis due to norovirus, Nausea, vomiting, and diarrhea Patient Disposition: Being Evaluated by Hospitalist Condition: Good Discharge Instructions Krames/Other Patient Handouts: ED Diet Vomiting Diarrhea Activity Restrictions/Additional Instructions: Forms Stand Alone Forms: Work/School Release (ED), Important Visit Information Prescriptions Prescriptions: No Action thyroid (pork) [[facility] [place] Thyroid] 120 mg tablet See Rx Instructions .ROUTE .COMPLEX Rx Instructions: Take 1 tablet daily along with a 15 mg tablet to equal 135 mg ; thyroid (pork) [[place] Thyroid] 15 mg tablet See Rx Instructions .ROUTE .COMPLEX Rx Instructions: Take 1 tablet daily along with a 120 mg tablet to equal 135 mg daily ; Glucagon Emergency Kit (human) 1 mg recon soln See Rx Instructions .ROUTE .COMPLEX PRN Rx Instructions: Use as directed for hypoglycemic emergency PRN; metformin 750 mg tablet extended release 24 hr 750 mg PO QDD Novolog U-100 Insulin aspart 100 unit/mL solution See Rx Instructions .ROUTE .COMPLEX Rx Instructions: Use 75-80 units via insulin pump or as directed ; Ozempic 0.25 mg or 0.5 mg(2 mg/1.5 mL) pen injector 0.5 mg SQ WK cholecalciferol (vitamin D3) 50 mcg (2,000 unit) capsule 2,000 units PO DAILY oxycodone 5 mg tablet 5 mg PO Q6H PRN (Reason: pain) Qty: 6 0RF ondansetron 4 mg tablet,disintegrating 4 mg PO Q8H PRN (Reason: nausea and vomiting) Qty: 6 0RF Referrals Referrals: Angeline Bueno DO [Primary Care Provider] -
[2024-10-15] MEDS: SODIUM CHLORIDE 0.9% 1,000 ML IV ONE ×2 (01:14→03:52)
[2024-10-15 01:22] LABS: Hematocrit (blood only) 43.8 % (37.0-47.0); Hemoglobin 15.2 g/dl (12.0-16.0); Mean Corpuscular Hemoglobin 30.8 pg (25.0-34.0); Mean Corpuscular Hgb Conc 34.7 g/dL (32.0-36.0); Mean Corpuscular Volume 88.7 fL (80.0-100.0); Mean Platelet Volume 9.7 fL (9.4-12.4); Platelet Count 214 K/uL (130-400); RDW Coefficient of Variation 12.8 % (11.5-14.5); RDW Standard Deviation 41.5 fL (36.4-46.3); Red Blood Count 4.94 M/uL (4.20-5.40); White Blood Count 15.65 K/ul (4.8-10.8)
[2024-10-15] MEDS: ONDANSETRON INJ 2 MG/ML 2 ML VIAL IV STA ×2 (01:44→06:42)
[2024-10-15] MEDS: FAMOTIDINE 20MG IV PUSH 20 MG/5 ML SYR IV STA (01:44)
[2024-10-15] MEDS: DICYCLOMINE HCL 10 MG/ML 2 ML AMP/VIAL IM ONE (01:45)
[2024-10-15 01:54] LABS: Basophils # (auto) 0.03 K/uL (0.00-0.20); Basophils % (auto) 0.2 %; Eosinophils # (auto) 0.02 K/uL (0.00-0.50); Eosinophils % (auto) 0.1 %; Immature Granulocytes # (auto) 0.04 K/uL (0.01-0.20); Immature Granulocytes % (auto) 0.3 %; Lymphocytes # (auto) 0.34 K/uL (1.20-3.40); Lymphocytes % (auto) 2.2 %; Monocytes # (auto) 0.88 K/uL (0.11-0.59); Monocytes % (auto) 5.6 %; Neutrophils # (auto) 14.34 K/uL (1.40-6.50); Neutrophils % (auto) 91.6 %
[2024-10-15 02:02] LABS: Albumin Globulin Ratio 1.4 (0.9-2); Albumin Level 4.4 gm/dl (3.4-5.0); BUN Creatinine Ratio 21.1 (10-20); Bilirubin,Total 0.6 mg/dl (0.2-1.0); Calcium 9.3 mg/dl (8.6-10.3); Creatinine Clr Calc Pharmacy 90.4 ml/min; Globulin 3.2 gm/dl (2.5-4.0); Magnesium 1.5 mg/dl (1.7-2.4); Potassium 4.2 mmol/L (3.5-5.1); Total Protein 7.6 gm/dl (6.0-8.3)
[2024-10-15] MEDS: MAGNESIUM SULFATE / D5W 1 GM/100 ML BAG IV SCH (02:33)
--- NOTE | 2024-10-15 03:27 | CT Scan Report ---
EXAM: CT abd pelvis IV con only CLINICAL HISTORY: Vomiting/abd pain TECHNIQUE: Multiple contiguous axial images were obtained from the level of diaphragm to the pubis symphysis. This study was acquired after the IV administration of iodinated contrast material, given the patient's indications for the examination. If IV contrast material had not been administered, the likelihood of detecting abnormalities relevant to the patient's condition would have been substantially decreased. Coronal and sagittal reformatted images were generated and reviewed to improve anatomic localization and optimize lesion detection. CT scan was performed according to ALARA (as low as reasonably achievable). COMPARISON: 22 June 2022 FINDINGS: The visualized lung bases are clear. ABDOMEN/PELVIS: The liver is normal in size and attenuation. No focal liver lesions are seen. There is no intra or extrahepatic biliary ductal dilatation. Hepatic vasculature is patent. Gallbladder is well distended. Hyperdense focus seen in gall bladder lumen near neck- 2 mm size. No signs of acute cholecystitis. The spleen is unremarkable. The pancreas is unremarkable. Both adrenal glands are unremarkable. The kidneys are normal in size and attenuation. There is no hydronephrosis. No perinephric fat stranding is seen. No renal calculi or renal masses are identified. The ureters are normal in caliber and no ureteral calculi are seen. The bladder is normal in contour. No evidence of focal or diffuse bowel wall thickening or evidence of bowel obstruction is seen. No evidence of inflamed appendix. No adenopathy or fluid collections are seen. The aorta is normal in caliber. No aggressive appearing osseous lesions are identified. A sclerotic lesion is noted involving the right iliac bone, possible enostosis. IMPRESSION: 1. Hyperdense focus seen in gall bladder lumen near neck- 2 mm size. Advised ultrasound correlation to confirm cholelithiasis. New finding as compared to prior study. 2. A sclerotic lesion is noted involving the right iliac bone, possible enostosis. Stable. 3. No other significant abnormality detected. Electronically signed by Clem Mendoza 10-15-2024 03:27 AM
[2024-10-15] MEDS: OPTIRAY 320 100ml IV ONE ×2 (04:30→04:31)
[2024-10-15 05:18] LABS: Adenovirus F 40/41 PCR Not Detected (NotDetected); Astrovirus PCR Not Detected (NotDetected); Campylobacter PCR Not Detected (NotDetected); Cryptosporidium PCR Not Detected (NotDetected); Cyclospora cayetanensis PCR Not Detected (NotDetected); Entamoeba histolytica PCR Not Detected (NotDetected); Enteroaggregative E.coli(EAEC) Not Detected (NotDetected); Enteropathogenic E.coli (EPEC) Not Detected (NotDetected); Enterotoxigenic E.coli (ETEC) Not Detected (NotDetected); Giardia lamblia PCR Not Detected (NotDetected); Plesiomonas shigelloides PCR Not Detected (NotDetected); Rotavirus A PCR Not Detected (NotDetected); Salmonella PCR Not Detected (NotDetected); Sapovirus PCR Not Detected (NotDetected); Shiga-like Toxin E.coli (STEC) Not Detected (NotDetected); Shigella/Enteroinvasive E.coli Not Detected (NotDetected); Vibrio cholerae PCR Not Detected (NotDetected); Vibrio species PCR Not Detected (NotDetected); Yersinia enterocolitica PCR Not Detected (NotDetected)
[2024-10-15 05:27] LABS: Norovirus GI/GII PCR DETECTED (NotDetected)
[2024-10-15] MEDS ORDERED: CARBOHYDRATES FOR HYPOGLYCEMIA PO PRN ×2 (06:18→14:09)
[2024-10-15] MEDS ORDERED: GLUCOSE 40% GEL 15 GM TUBE PO PRN ×2 (06:18→14:09)
[2024-10-15] MEDS ORDERED: GLUCOSE 10 TAB/TUBE PO PRN ×2 (06:18→14:09)
[2024-10-15] MEDS ORDERED: GLUCAGON FOR INJ 1 MG VIAL SQ PRN ×2 (06:18→14:09)
[2024-10-15] MEDS ORDERED: INSULIN ASPART 100 UNITS/ML VIAL SC PRN (06:18)
[2024-10-15] MEDS ORDERED: DEXTROSE 50% 50 ML SYRINGE IV PRN ×2 (06:18→14:09)
[2024-10-15] MEDS ORDERED: INSULIN, Rapid-Acting PUMP SC SCH (06:30)
[2024-10-15] MEDS: SODIUM CHLORIDE 0.9% 1,000 ML IV SCH (06:42)
--- NOTE | 2024-10-15 08:12 | History & Physical Report ---
Date of Service October 15, 2024 Assessment & Plan (1) Gastroenteritis due to norovirus: Plan: 39-year-old female with past medical history significant for type 1 diabetes on insulin pump, PCOS, acquired hypothyroidism, generalized anxiety disorder comes because of nausea vomiting and diarrhea and found to have norovirus. Patient was coming from [place], last night around 10:30 PM she started to have nausea and vomiting and diarrhea. Had several episodes of vomiting and diarrhea. No blood in the stools. Has some abdominal cramping. Had low-grade temperature. Has headache. Was dizzy. No runny nose or no sore throat. Has some cough. Denies chest pain or shortness of breath. In the ER also she was feeling dizzy. Hemodynamics are okay. Feeling weak. Gastroenteritis due to norovirus Presents with nausea vomiting and diarrhea Contact precautions Supportive care IV fluids Close monitor Type 1 diabetes Monitor continue insulin pump Close monitor Hypothyroidism On Synthyroid Generalized anxiety disorder On buspirone as needed DVT prophylaxis Lovenox Disposition Medical floor Full code History of Present Illness Chief Complaint: Nausea vomiting and diarrhea Primary Care Provider: Angeline Bueno, 39-year-old female with past medical history significant for type 1 diabetes on insulin pump, PCOS, acquired hypothyroidism, generalized anxiety disorder comes because of nausea vomiting and diarrhea and found to have norovirus. Patient was coming from [place], last night around 10:30 PM she started to have nausea and vomiting and diarrhea. Had several episodes of vomiting and diarrhea. No blood in the stools. Has some abdominal cramping. Had low-grade temperature. Has headache. Was dizzy. No runny nose or no sore throat. Has some cough. Denies chest pain or shortness of breath. In the ER also she was feeling dizzy. Hemodynamics are okay. Feeling weak Past med history. As mentioned above Past surgical history. . Colonoscopy. Dental surgery. EGD. Thyroid surgery Social history. . No smoking. Alcohol wine twice a week. No drug use. Family history. Mother had skin cancer. Hypertension. Father had hyperlipidemia. Paternal grand father had CAD with stenting. Maternal grandmother had thyroid disorder. Allergies Allergy/AdvReac Type Severity Reaction Status Date / Time latex Allergy Unknown RASH Verified 09/18/17 08:18 Home Medications Medication Instructions Recorded Confirmed Type buspirone 5 mg tablet 5 mg PO TID PRN Anxiety 10/15/24 10/15/24 History insulin lispro 100 unit/mL 10/15/24 History subcutaneous solution (Humalog U-100 Insulin) levothyroxine 175 mcg tablet 175 mcg PO DAILY 10/15/24 10/15/24 History (Synthroid) Past Med/Surg History Problem List (Updated 10/15/24 @ 05:27 by Melissa Whyte PA-C) Gastroenteritis due to norovirus (Acute) Nausea, vomiting, and diarrhea (Acute) Abdominal pain (Acute) Diffuse abdominal pain (Acute) Dysuria (Acute) Nausea, vomiting, and diarrhea (Acute) Rash (Acute) Medical History PCOS (polycystic ovarian syndrome) Type 1 diabetes Surgical History No pertinent past surgical history Social History Smoking Status: Never smoker Hx Alcohol Use: No Hx Substance Use: No Preferred Language: Grenadian Communication Ability: Effective Converter Operator Required: No Beliefs That Will Affect Care: None Current Living Situation: Spouse Other Information That Helps Us Care for You: No Feels Safe at Home: Yes Safety Concerns: Feels Safe At This Time Review of Systems Review of Systems: All systems reviewed & are unremarkable except as noted in HPI & below Physical Exam Physical Exam: General- Not in distress Head- atraumatic Eyes- PERRL. ENT- oropharynx clear Neck- supple, no JVD. Lungs- clear to auscultation no wheezing or crackles. Heart- regular rhythm; no murmur, no gallop. Abdomen- normal bowel sounds, soft, nontender, no distension Extremities- no pretibial edema, no erythema seen Neuro- alert, oriented PERRL,; no facial palsy; no dysarthria; moves ext remities Results & Data Results & Data Vital Signs (Past 12 Hours) Vital Signs Temp Pulse Pulse Resp BP BP Pulse Ox 10/15/24 07:29 86 16 149/74 H 94 10/15/24 06:30 36.5 C 95 H 20 134/61 95 10/15/24 06:00 89 16 134/61 94 10/15/24 05:16 87 10/15/24 04:00 83 18 126/75 97 02/17/25 02:48 89 17 126/75 97 10/15/24 01:07 10/15/24 01:05 101 H 10/15/24 01:03 36.8 C 98 H 16 129/72 100 O2 Del Method 10/15/24 07:29 Room Air 10/15/24 06:30 Room Air 10/15/24 06:00 Room Air 10/15/24 05:16 10/15/24 04:00 Room Air 10/15/24 02:48 Room Air 10/15/24 01:07 Room Air 10/15/24 01:05 10/15/24 01:03 Room Air Diagnostic Findings Laboratory Results WBC 15.65 K/ul (4.8-10.8) H 10/15/24 01:08 RBC 4.94 M/uL (4.20-5.40) 10/15/24 01:08 Hgb 15.2 g/dl (12.0-16.0) 10/15/24 01:08 Hct 43.8 % (37.0-47.0) 10/15/24 01:08 MCV 88.7 fL (80.0-100.0) 10/15/24 01:08 MCH 30.8 pg (25.0-34.0) 10/15/24 01:08 MCHC 34.7 g/dL (32.0-36.0) 10/15/24 01:08 RDW Std Deviation 41.5 fL (36.4-46.3) 10/15/24 01:08 RDW Coeff of Abdi 12.8 % (11.5-14.5) 10/15/24 01:08 Plt Count 214 K/uL (130-400) 10/15/24 01:08 MPV 9.7 fL (9.4-12.4) 10/15/24 01:08 Immature Gran % (Auto) 0.3 % 10/15/24 01:08 Neut % (Auto) 91.6 % 10/15/24 01:08 Lymph % (Auto) 2.2 % 10/15/24 01:08 [place] % (Auto) 5.6 % 10/15/24 01:08 Eos % (Auto) 0.1 % 10/15/24 01:08 Baso % (Auto) 0.2 % 10/15/24 01:08 Neut # (Auto) 14.34 K/uL (1.40-6.50) H 10/15/24 01:08 Lymph # (Auto) 0.34 K/uL (1.20-3.40) L 10/15/24 01:08 [place] # (Auto) 0.88 K/uL (0.11-0.59) H 10/15/24 01:08 Eos # (Auto) 0.02 K/uL (0.00-0.50) 10/15/24 01:08 Baso # (Auto) 0.03 K/uL (0.00-0.20) 10/15/24 01:08 Immature Gran # (Auto) 0.04 K/uL (0.01-0.20) 10/15/24 01:08 Sodium 137 mmol/L (136-145) 10/15/24 01:08 Potassium 4.2 mmol/L (3.5-5.1) 10/15/24 01:08 Chloride 104 mmol/L (98-107) 10/15/24 01:08 Carbon Dioxide 23 mmol/L (21-32) 10/15/24 01:08 Anion Gap 10 (3-11) 10/15/24 01:08 BUN 19 mg/dl (6-23) 10/15/24 01:08 Creatinine 0.90 mg/dl (0.6-1.2) 10/15/24 01:08 Est Cr Clr Drug Dosing 90.4 ml/min 10/15/24 01:08 eGFR 82.37 10/15/24 01:08 BUN/Creatinine Ratio 21.1 (10-20) H 10/15/24 01:08 Glucose 207 mg/dl (70-99(Fasting)) H 10/15/24 01:08 Calcium 9.3 mg/dl (8.6-10.3) 10/15/24 01:08 Magnesium 1.5 mg/dl (1.7-2.4) L 10/15/24 01:08 Total Bilirubin 0.6 mg/dl (0.2-1.0) 10/15/24 01:08 AST 17 U/L (13-39) 10/15/24 01:08 ALT 13 U/L (7-52) 10/15/24 01:08 Alkaline Phosphatase 76 U/L (34-104) 10/15/24 01:08 Total Protein 7.6 gm/dl (6.0-8.3) 10/15/24 01:08 Albumin 4.4 gm/dl (3.4-5.0) 10/15/24 01:08 Globulin 3.2 gm/dl (2.5-4.0) 10/15/24 01:08 Albumin/Globulin Ratio 1.4 (0.9-2) 10/15/24 01:08 Lipase 10 U/L (11-82) L 10/15/24 01:08 Stl C. cayetanensis PCR Not Detected (NotDetected) 10/15/24 03:56 Stool Rotavirus A PCR Not Detected (NotDetected) 10/15/24 03:56 Stl Adenov F 40/41 PCR Not Detected (NotDetected) 10/15/24 03:56 Stool Astrovirus (PCR) Not Detected (NotDetected) 10/15/24 03:56 Stool Campylobacter PCR Not Detected (NotDetected) 10/15/24 03:56 Stl C. diff Tox B Gene Negative Cdiff Gene (Neg) 10/15/24 03:56 Stool Cryptosporidium PCR Not Detected (NotDetected) 10/15/24 03:56 Stl E.coli Shiga Tox PCR Not Detected (NotDetected) 10/15/24 03:56 Stl Enterotoxigenic E PCR Not Detected (NotDetected) 10/15/24 03:56 Stool EPEC (PCR) Not Detected (NotDetected) 10/15/24 03:56 Stool EAEC (PCR) Not Detected (NotDetected) 10/15/24 03:56 Stl E. histolytica PCR Not Detected (NotDetected) 10/15/24 03:56 Stool Giardia Lamblia PCR Not Detected (NotDetected) 10/15/24 03:56 Stool Salmonella PCR Not Detected (NotDetected) 10/15/24 03:56 Stool Sapovirus (PCR) Not Detected (NotDetected) 10/15/24 03:56 Stl P. shigelloides PCR Not Detected (NotDetected) 10/15/24 03:56 Stl Shigella/EIEC PCR Not Detected (NotDetected) 10/15/24 03:56 St Y.enterocolitica PCR Not Detected (NotDetected) 10/15/24 03:56 Stool Vibrio (PCR) Not Detected (NotDetected) 10/15/24 03:56 Stl Vibrio cholerae PCR Not Detected (NotDetected) 10/15/24 03:56 Stl Norovirus GI/GII PCR DETECTED (NotDetected) A* 10/15/24 03:56 Impressions Abdomen/Pelvis CT 10/15/24 01:07 EXAM: CT abd pelvis IV con only CLINICAL HISTORY: Vomiting/abd pain TECHNIQUE: Multiple contiguous axial images were obtained from the level of diaphragm to the pubis symphysis. This study was acquired after the IV administration of iodinated contrast material, given the patient's indications for the examination. If IV contrast material had not been administered, the likelihood of detecting abnormalities relevant to the patient's condition would have been substantially decreased. Coronal and sagittal reformatted images were generated and reviewed to improve anatomic localization and optimize lesion detection. CT scan was performed according to ALARA (as low as reasonably achievable). COMPARISON: 22 June 2022 FINDINGS: The visualized lung bases are clear. ABDOMEN/PELVIS: The liver is normal in size and attenuation. No focal liver lesions are seen. There is no intra or extrahepatic biliary ductal dilatation. Hepatic vasculature is patent. Gallbladder is well distended. Hyperdense focus seen in gall bladder lumen near neck- 2 mm size. No signs of acute cholecystitis. The spleen is unremarkable. The pancreas is unremarkable. Both adrenal glands are unremarkable. The kidneys are normal in size and attenuation. There is no hydronephrosis. No perinephric fat stranding is seen. No renal calculi or renal masses are identified. The ureters are normal in caliber and no ureteral calculi are seen. The bladder is normal in contour. No evidence of focal or diffuse bowel wall thickening or evidence of bowel obstruction is seen. No evidence of inflamed appendix. No adenopathy or fluid collections are seen. The aorta is normal in caliber. No aggressive appearing osseous lesions are identified. A sclerotic lesion is noted involving the right iliac bone, possible enostosis. IMPRESSION: 1. Hyperdense focus seen in gall bladder lumen near neck- 2 mm size. Advised ultrasound correlation to confirm cholelithiasis. New finding as compared to prior study. 2. A sclerotic lesion is noted involving the right iliac bone, possible enostosis. Stable. 3. No other significant abnormality detected. Electronically signed by Clem Mendoza 10-15-2024 03:27 AM Code Status & VTE Plan VTE Prophylaxis Plan VTE Prophylaxis will be ordered: Yes
[2024-10-15] MEDS ORDERED: busPIRone 5 MG TAB PO PRN (09:51)
[2024-10-15] MEDS: ONDANSETRON INJ 2 MG/ML 2 ML VIAL IV PRN (11:02)
[2024-10-15] MEDS: ENOXAPARIN INJ 40 MG/0.4 ML SYR SQ STA (11:06)
[2024-10-15 11:33] LABS: Hemoglobin 13.2 g/dl (12.0-16.0); Mean Corpuscular Hemoglobin 31.5 pg (25.0-34.0); Mean Corpuscular Hgb Conc 34.7 g/dL (32.0-36.0); Mean Corpuscular Volume 90.7 fL (80.0-100.0); Mean Platelet Volume 9.8 fL (9.4-12.4); Platelet Count 200 K/uL (130-400); RDW Coefficient of Variation 13.1 % (11.5-14.5); Red Blood Count 4.19 M/uL (4.20-5.40)
[2024-10-15] MEDS: LEVOTHYROXINE SODIUM 175 MCG TABLET PO SCH (11:38)
[2024-10-15] MEDS: ACETAMINOPHEN 325 MG TAB PO PRN (11:38)
[2024-10-15 11:53] LABS: BUN Creatinine Ratio 25.6 (10-20); Creatinine Clr Calc Pharmacy 104.3 ml/min; Magnesium 1.9 mg/dl (1.7-2.4); Potassium 3.9 mmol/L (3.5-5.1)
[2024-10-15 12:03] LABS: Basophils # (auto) 0.02 K/uL (0.00-0.20); Basophils % (auto) 0.2 %; Immature Granulocytes # (auto) 0.03 K/uL (0.01-0.20); Immature Granulocytes % (auto) 0.3 %; Lymphocytes # (auto) 0.38 K/uL (1.20-3.40); Lymphocytes % (auto) 3.8 %; Monocytes # (auto) 0.47 K/uL (0.11-0.59); Monocytes % (auto) 4.7 %
--- NOTE | 2024-10-15 13:38 | Communication Note ---
Date of Service: October 15, 2024 Patient seen and examined Patient reports nausea is improving. No abdominal pain. Still has diarrhea She wants to try clear liquids. Clear liquid ordered Continue antiemetics, IVF Monitor BG Continue supportive care Other plans as detailed in H/P this AM
--- NOTE | 2024-10-15 15:56 | Ultrasound Report ---
US gallbladder CLINICAL HISTORY: Better assessment of CT findings COMPARISON STUDY: CT abdomen and pelvis dated 10/15/2024 and 06/22/2022 FINDINGS: There are no pancreatic lesion is depicted. The liver measures 15 cm in cephalocaudal dimension and contains a 18 mm hyperechoic focus in the lef t lobe without color Doppler blood flow consistent with a hemangioma and unchanged in size when matthew red with prior CTs. No additional liver lesions are identified. There is hepatopedal flow in the port al vein. The IVC is patent. There is no ascites. The gallbladder is sonographically normal. There is no stone identified. Wall thickness is normal. Th e common bile duct is within normal limits at 6 mm. Right kidney is sonographically normal measuring 12.4 cm in long axis. No hydronephrosis. IMPRESSION: No evidence of cholelithiasis. Small hemangioma left lobe of the liver. ACT 112: Negative or not required by law. Electronically signed by: Nadia Scott M.D. 10/15/2024 3:54 PM
[2024-10-15] MEDS: Continuous Glucose Monitor SCH (17:13)
[2024-10-16] MEDS: KETOROLAC TROMETHAMINE 15 MG/ML VIAL IM STA (04:28)
[2024-10-16] MEDS: KETOROLAC TROMETHAMINE 15 MG/ML VIAL IV ONE (04:30)
[2024-10-16 05:36] LABS: Basophils # (auto) 0.02 K/uL (0.00-0.20); Basophils % (auto) 0.3 %; Eosinophils # (auto) 0.03 K/uL (0.00-0.50); Eosinophils % (auto) 0.4 %; Hematocrit (blood only) 35.3 % (37.0-47.0); Immature Granulocytes # (auto) 0.04 K/uL (0.01-0.20); Immature Granulocytes % (auto) 0.6 %; Lymphocytes # (auto) 1.03 K/uL (1.20-3.40); Lymphocytes % (auto) 14.6 %; Mean Corpuscular Hemoglobin 30.9 pg (25.0-34.0); Mean Platelet Volume 9.3 fL (9.4-12.4); Monocytes # (auto) 0.65 K/uL (0.11-0.59); Monocytes % (auto) 9.2 %; Neutrophils # (auto) 5.27 K/uL (1.40-6.50); Neutrophils % (auto) 74.9 %; Platelet Count 166 K/uL (130-400); RDW Coefficient of Variation 13.2 % (11.5-14.5); RDW Standard Deviation 44.1 fL (36.4-46.3); Red Blood Count 3.88 M/uL (4.20-5.40); White Blood Count 7.04 K/ul (4.8-10.8)
[2024-10-16 05:59] LABS: BUN Creatinine Ratio 22.5 (10-20); Calcium 7.4 mg/dl (8.6-10.3); Creatinine Clr Calc Pharmacy 101.7 ml/min; Magnesium 1.7 mg/dl (1.7-2.4); Potassium 3.4 mmol/L (3.5-5.1)
[2024-10-16] MEDS: POTASSIUM ACETATE/NSS 10 MEQ/105 ML BAG IV SCH (08:27)
[2024-10-16] MEDS: ENOXAPARIN INJ 40 MG/0.4 ML SYR SQ SCH (08:30)
[2024-10-16 08:40] LABS: Estimated Average Glucose 157 mg/dl; Hemoglobin A1C 7.1 % (4.5-5.6)
--- NOTE | 2024-10-16 10:43 | Hospitalist Progress Note ---
Date of Service October 16, 2024 Assessment & Plan (1) Gastroenteritis due to norovirus: Plan: 39-year-old female with past medical history significant for type 1 diabetes on insulin pump, PCOS, acquired hypothyroidism, generalized anxiety disorder comes because of nausea vomiting and diarrhea and found to have norovirus. Gastroenteritis due to norovirus Contact precautions Continue supportive care Continue IV fluids Type 1 diabetes Continue insulin pump Monitor BG HbA1c 7.1 Hypothyroidism On Synthyroid Generalized anxiety disorder On buspirone as needed DVT prophylaxis Lovenox Full code. I spent a total of 50 minutes coordinating, documenting and providing care for this patient excluding time spent in performance of separately billed services Admission and Anticipated Discharge Date Admission Date: October 15, 2024 Subjective Patient seen and examined Had fever overnight. Reports nausea is improved. However, still having diarrhea Reports RUQ discomfort. She thinks it may be related to Gallbladder USS procedure No other complaints Physical Exam Constitutional: + well hydrated; no acute distress Eyes: PERRL, conjunctivae normal, anicteric sclerae ENMT: external ear and nose normal, oropharynx normal Respiratory: normal respiratory effort, lungs clear to auscultation Cardiovascular: Rate/Rhythm: regular rate and regular rhythm Gastrointestinal (Abdomen): normal bowel sounds, soft, nontender, no hepatosplenomegaly Musculoskeletal: no cyanosis or clubbing, extremities motor strength 5/5 Neurologic: PERRL, EOMI, accommodation nl, no face palsy, no dysarthria Psychiatric: A+Ox3, euthymic affect Results & Data Results & Data Vital Signs (Past 12 Hours) Vital Signs Temp Pulse Resp BP Pulse Ox O2 Del Method 10/16/24 07:35 37.2 C 75 16 108/71 93 Room Air 10/16/24 04:31 37.7 C H 10/16/24 03:00 38.4 C H 10/16/24 02:09 38.7 C H Laboratory Results Abnormal lab results 10/15/24 10/16/24 Range/Units 10:57 05:23 RBC 3.88 L (4.20-5.40) M/uL Hct 35.3 L (37.0-47.0) % MPV 9.3 L (9.4-12.4) fL Neut # (Auto) 9.00 H (1.40-6.50) K/uL Lymph # (Auto) 0.38 L 1.03 L (1.20-3.40) K/uL [place] # (Auto) 0.65 H (0.11-0.59) K/uL Potassium 3.4 L (3.5-5.1) mmol/L Chloride 111 H 112 H (98-107) mmol/L Carbon Dioxide 20 L (21-32) mmol/L BUN/Creatinine Ratio 25.6 H 22.5 H (10-20) Glucose 121 H 111 H (70-99(Fasting)) mg/dl Hemoglobin A1c 7.1 H (4.5-5.6) % Calcium 8.0 L 7.4 L (8.6-10.3) mg/dl
[2024-10-16] MEDS: LACTATED RINGER'S 1,000 ML IV SCH (11:31)
[2024-10-16] MEDS: ONDANSETRON 4 MG OD TAB PO PRN (19:07)
[2024-10-17 07:17] VITALS: BP 121/75; PULSE 90; RESP 17; TEMP 98.1; O2SAT 92
[2024-10-17 12:16] LABS: Hematocrit (blood only) 39.1 % (37.0-47.0); Hemoglobin 13.6 g/dl (12.0-16.0); Mean Corpuscular Hemoglobin 31.3 pg (25.0-34.0); Mean Corpuscular Hgb Conc 34.8 g/dL (32.0-36.0); Mean Corpuscular Volume 90.1 fL (80.0-100.0); Mean Platelet Volume 9.8 fL (9.4-12.4); Platelet Count 183 K/uL (130-400); RDW Coefficient of Variation 12.7 % (11.5-14.5); RDW Standard Deviation 42.4 fL (36.4-46.3); Red Blood Count 4.34 M/uL (4.20-5.40); White Blood Count 8.43 K/ul (4.8-10.8)
[2024-10-17 12:40] LABS: Albumin Globulin Ratio 1.3 (0.9-2); Albumin Level 3.7 gm/dl (3.4-5.0); BUN Creatinine Ratio 11.1 (10-20); Bilirubin,Total 0.3 mg/dl (0.2-1.0); Calcium 8.5 mg/dl (8.6-10.3); Globulin 2.8 gm/dl (2.5-4.0); Magnesium 1.8 mg/dl (1.7-2.4); Phosphorus 2.3 mg/dl (2.5-4.9); Potassium 3.8 mmol/L (3.5-5.1); Total Protein 6.5 gm/dl (6.0-8.3)
[2024-10-17] MEDS: POT PHOSPHATE MONOBASIC W/ SOD TAB PO ONE (13:59)
== END 2024-10-17 14:30 | disposition home or self-care (01) | DRG 392 ==
LOC: ED 00:59 → EDINP 06:23 → SUATTDRO 06:23 → 3E 09:51